=== PATIENT | male | born 1980 | race Caucasian/White ===

== ENCOUNTER 2017-09-27 09:44 | Emergency (ER) | payer OTHER ==
[2017-09-27] MEDS ORDERED: ORPHENADRINE 30 MG/ML 2 ML VIAL IVP STA (10:03)
[2017-09-27] MEDS ORDERED: DIAZEPAM 5 MG TAB PO STA (10:03)
--- NOTE | 2017-09-27 10:09 | ED ---
General Adult HPI - General Chief complaint: Fall Stated complaint: Fall Time Seen by Provider: 09/27/17 09:48 Source: patient, RN notes reviewed Mode of arrival: EMS Limitations: no limitations - History of Present Illness Initial comments: Patient 37-year-old male presenting to the emergency room today by EMS with a chief complaint of increased lower back pain. He does admit that he was standing outside leaning up against the wall when he slipped on some ice fell down onto his buttock. He states he's had increased pain to his lower back. Since radiating throughout. Denies any lumbar radiculopathy. Denies any saddle anesthesia. Denies any gallbladder incontinence. Denies any head injury or loss consciousness. Patient does admit that he was given 6 mg of morphine by EMS which did help with some of his pain but is been having increased pain once again. States worse with any movements. Patient denies any recent fever, chills, shortness of breath, chest pain, abdominal pain, nausea or vomiting, headaches or visual changes, or any other complaints. - Related Data Home Medications Medication Instructions Recorded Confirmed Citalopram Hydrobromide [CeleXA] 40 mg PO HS 04/19/16 09/27/17 Ibuprofen [Motrin Ib] 200 - 400 mg PO Q6H PRN 09/27/17 09/27/17 Previous Rx's Medication Instructions Recorded Baclofen 10 mg PO TID #20 tab 09/27/17 Hydrocodone/Acetaminophen [[place] 1 each PO Q6HR PRN #20 tab 09/27/17 5-325] Naproxen [Naprosyn] 500 mg PO BID #20 tablet 09/27/17 Allergies Allergy/AdvReac Type Severity Reaction Status Date / Time codeine AdvReac Nausea Verified 09/27/17 09:54 [From Tylenol-Codeine #3] ibuprofen [From Motrin] AdvReac Nausea & Verified 09/27/17 10:12 Vomiting & Diarrhea Review of Systems ROS Statement: Those systems with pertinent positive or pertinent negative responses have been documented in the HPI. ROS Other: All systems not noted in ROS Statement are negative. Past Medical History Past Medical History: Asthma History of Any Multi-Drug Resistant Organisms: None Reported Additional Past Surgical History / Comment(s): vasectomy. Past Psychological History: No Psychological Hx Reported Smoking Status: Current every day smoker Past Alcohol Use History: Occasional Past Drug Use History: Marijuana General Exam - General Exam Comments Initial Comments: General: The patient is awake and alert, in no distress, and does not appear acutely ill. Eye: Pupils are equal, round and reactive to light, extra-ocular movements are intact. No nystagmus. There is normal conjunctiva bilaterally. No signs of icterus. Ears, nose, mouth and throat: There are moist mucous membranes and no oral lesions. Neck: The neck is supple, there is no tenderness or JVD. Cardiovascular: There is a regular rate and rhythm. No murmur, rub or gallop is appreciated. Respiratory: Lungs are clear to auscultation, respirations are non-labored, breath sounds are equal. No wheezes, stridor, rales, or rhonchi. Musculoskeletal: Normal ROM. Patient has no step-off deformity. Diffuse tenderness throughout the lumbar spine on palpation and paravertebrally to left right. Strength 5/5. Sensation intact. Pulses equal bilaterally 2+. Neurological: A&O x 3. CN II-XII intact, There are no obvious motor or sensory deficits. Coordination appears grossly intact. Speech is normal. Skin: Skin is warm and dry and no rashes or lesions are noted. Psychiatric: Cooperative, appropriate mood & affect, normal judgment. Limitations: no limitations Course Vital Signs 09/27/17 09:46 Temperature 98.7 F Pulse Rate 64 Respiratory 18 Rate Blood Pressure 145/76 O2 Sat by Pulse 96 Oximetry Medical Decision Making - Medical Decision Making Patient's CT of the lumbar spine has been reviewed shows 1. Compression deformity of L1 vertebral body height loss approximately 50% with no retropulsion. 2. No gross evidence of disc herniation or spinal canal stenosis , however these findings are better evaluated with MRI as read by radiologist Dr. Rios. Case discussed with attending physician Dr. Simon. Patient will be given a prescription for pain medication of [place], naproxen which patient states she's had before with normal reaction, most relaxer. Advised following up with the orthopedic doctor over the next 2 days. Advised no bending or heavy lifting. Patient will be given a prescription for TLSO trace. Disposition Clinical Impression: Vertebral compression fracture Disposition: HOME SELF-CARE Condition: Good Instructions: Vertebral Compression Fracture (ED) Additional Instructions: Please use medication as discussed. Please follow-up with orthopedic doctor over the next 2 days. Please use back brace when up and moving. No bending or lifting. Please return to emergency room if the symptoms increase or worsen or for any other concerns. Prescriptions: Baclofen 10 mg PO TID #20 tab Hydrocodone/Acetaminophen [[place] 5-325] 1 each PO Q6HR PRN #20 tab PRN Reason: Pain Naproxen [Naprosyn] 500 mg PO BID #20 tablet Is patient prescribed a controlled substance at discharge?: Yes If prescribed controlled substance>3 days was MAPS reviewed?: Yes When asked, does pt state using other controlled substances?: No Referrals: Declan Gutierrez MD [Primary Care Provider] - 1-2 days Time of Disposition: 11:59
--- NOTE | 2017-09-27 10:29 | XR ---
EXAMINATION TYPE: XR lumbar spine 2 or 3V DATE OF EXAM: 09/27/2017 CLINICAL HISTORY: Low back pain after fall today. TECHNIQUE: Frontal and lateral images of the lumbar spine are obtained. COMPARISON: None FINDINGS: There are 5 lumbar type vertebral bodies identified. There is a mild levoscoliosis of the lumbar spine. The lumbar spine shows satisfactory alignment. There is compression deformity of the L1 vertebral body without retropulsion. Vertebral body height loss is approximately 50% anteriorly. The re is central depression of the superior endplate of L3, likely from degenerative disc disease rather than compression deformity is vertebral body height loss of the anterior superior endplate is mainta ined. Multilevel mild degenerative changes are seen as small anterior osteophytes and facet arthropat hy from L3 through S1. Pedicles, transverse processes and visualized ribs appear intact. IMPRESSION: 1. Compression deformity of approximately 50% of the L1 vertebral body without retropulsion. Given th e recent fall this could be acute, however without priors for comparison this remains age indetermina nt. Correlate with point tenderness. Additionally MRI could be performed to evaluate for bone marrow edema if kyphoplasty is considered. 2. Mild multilevel degenerative changes of the lumbar spine and mild levoscoliotic curvature.
[2017-09-27] MEDS ORDERED: MORPHINE SULFATE 4MG/4ML SYRG IVP STA (10:36)
[2017-09-27] MEDS ORDERED: KETOROLAC 30 MG/ML 1 ML VIAL IVP STA (10:36)
--- NOTE | 2017-09-27 11:13 | CT ---
EXAMINATION TYPE: CT lumbar spine wo con DATE OF EXAM: 09/27/2017 11:02 AM COMPARISON: Lumbar spine plain films of the same date. HISTORY: Patient complains of low back pain post fall from standing to sitting position. CT DLP: 1796 mGycm Automated exposure control for dose reduction was used. Unenhanced CT of the lumbar spine was performed. Bone and soft tissue window settings are submitted as well as coronal and sagittal reconstructions. Other findings: Again there is a compression deformity of the L1 vertebral body with vertebral body h eight loss of approximately 50% without retropulsion. The fracture line does extend into the vertebra l body from the cranial aspect of the caudal aspect however this does not extend into the posterior c olumn. Remainder the vertebral body heights are maintained. Evaluation of the spinal canal is limited on CT. Alignment of the vertebral bodies are maintained. There is partial visualization of a probable displaced 3.3 cm exophytic right renal cyst. L1-L2: Normal disc space height. No disc herniation protrusion or central stenosis. No facet joint arthropathy. No evidence for foraminal encroachment. L2-L3: Normal disc space height. No disc herniation protrusion or central stenosis. No facet joint arthropathy. No evidence for foraminal encroachment. L3-L4: There is a broad-based disc bulge and facet arthropathy without significant neural foraminal s tenosis or spinal canal stenosis. L4-L5: There is a broad-based disc bulge and facet arthropathy resulting in minimal bilateral neural foraminal narrowing. No significant spinal canal stenosis. L5-S1: Normal disc space height. No disc herniation protrusion or central stenosis. No facet joint arthropathy. No evidence for foraminal encroachment. IMPRESSION: 1. Redemonstration of findings seen on the plain films of the same date. Again there is compression d eformity of the L1 vertebral body with height loss of approximately 50% and no retropulsion. Estimate d on the prior examination and recent fall this could be acute however without priors for comparison it is age indeterminate. MRI could be performed to evaluate for bone marrow edema if kyphoplasty is c onsidered. 2. No gross evidence of disc herniation or spinal canal stenosis, however these findings are better e valuated with MRI.
[2017-09-27 12:10] VITALS: BP 115/55; PULSE 51; RESP 16; TEMP 98.1
== END 2017-09-27 12:22 | disposition home or self-care (01) ==
LOC: EC 09:44
DX: S32.010A Wedge compression fracture of first lumbar vertebra, initial encounter for closed fracture (principal); F17.200 Nicotine dependence, unspecified, uncomplicated; Z79.899 Other long term (current) drug therapy; Z88.5 Allergy status to narcotic agent; Z88.6 Allergy status to analgesic agent; W00.0XXA Fall on same level due to ice and snow, initial encounter; Y93.89 Activity, other specified; Y92.008 Other place in unspecified non-institutional (private) residence as the place of occurrence of the external cause
CPT/HCPCS: 72100; 72131; 99284; 96374; 96375 ×2; J2360; J1885; J2270

== ENCOUNTER 2017-09-29 12:16 | Emergency (ER) | payer OTHER ==
[2017-09-29 12:30] VITALS: TEMP 98.2
[2017-09-29] MEDS ORDERED: KETOROLAC 30 MG/ML 1 ML VIAL IVP STA (13:14)
[2017-09-29] MEDS ORDERED: ONDANSETRON 4 MG/2 ML VIAL IVP STA (13:14)
[2017-09-29] MEDS ORDERED: MORPHINE SULFATE 4MG/4ML SYRG IVP STA ×2 (13:14→15:21)
--- NOTE | 2017-09-29 14:01 | XR ---
Lumbar spine HISTORY: Low back pain, trauma last Tuesday 3 views of the lumbar spine correlated to prior plain film and CT exam dated 09/27/2017 There is no significant change. IMPRESSION: Stable exam. Comminuted anterior wedge compression fracture at L1 again noted.
--- NOTE | 2017-09-29 15:05 | ED ---
General Adult HPI - General Chief complaint: Back Pain/Injury Stated complaint: back pain-revisit Time Seen by Provider: 09/29/17 12:54 Source: patient, family, RN notes reviewed Mode of arrival: wheelchair Limitations: no limitations - History of Present Illness Initial comments: 37-year-old male presents to the emergency department for a chief complaint of low back pain. Patient states he was here 2 days ago and was diagnosed with a compression wedge fracture of L1. He states 2 days ago he was leaning against his porch when he slipped and fell on his buttock. Patient states he has been taking [place] and naproxen which has been helping somewhat. However the pain is caused him to be unable to sleep. Patient states he contacted his doctor about this who said he needed to come to the emergency department to be admitted for pain management and monitoring since he can't be seen by his primary care doctor until Tuesday. Patient states he is supposed to be fitted for a brace but states he was going to go today but the pain was too severe for him to go. Patient denies any bladder or bowel changes. Patient has full sensation of both legs and denies any numbness or tingling in the lower extremities. Patient states his pain was getting better yesterday but it now feels as if it did when he had the fracture. Patient denies any other complaints at this time. Patient denies shortness of breath, chest pain, abdominal pain, headache , nausea or vomiting. No neck pain. No injuries to the back since he was last seen here. - Related Data Home Medications Medication Instructions Recorded Confirmed Citalopram Hydrobromide [CeleXA] 40 mg PO HS 04/19/16 09/29/17 Hydrocodone/Acetaminophen [[place] 1 tab PO Q6HR PRN 09/29/17 09/29/17 5-325] Previous Rx's Medication Instructions Recorded Baclofen 10 mg PO TID #20 tab 09/27/17 Naproxen [Naprosyn] 500 mg PO BID #20 tablet 09/27/17 HYDROcodone/APAP 5-325MG [[place] 1 tab PO Q6HR PRN #12 tab 09/29/17 5-325] Allergies Allergy/AdvReac Type Severity Reaction Status Date / Time codeine AdvReac Nausea Verified 09/29/17 13:05 [From Tylenol-Codeine #3] ibuprofen [From Motrin] AdvReac Nausea & Verified 09/29/17 13:05 Vomiting & Diarrhea Review of Systems ROS Statement: Those systems with pertinent positive or pertinent negative responses have been documented in the HPI. ROS Other: All systems not noted in ROS Statement are negative. Past Medical History Past Medical History: Asthma Additional Past Medical History / Comment(s): compression fracture to back History of Any Multi-Drug Resistant Organisms: None Reported Additional Past Surgical History / Comment(s): vasectomy. Past Psychological History: No Psychological Hx Reported Smoking Status: Current every day smoker Past Alcohol Use History: Occasional Past Drug Use History: Marijuana General Exam Limitations: no limitations General appearance: alert, in no apparent distress Neck exam: Present: normal inspection. Absent: tenderness, meningismus, lymphadenopathy Respiratory exam: Present: normal lung sounds bilaterally. Absent: respiratory distress, wheezes, rales, rhonchi, stridor Cardiovascular Exam: Present: regular rate, normal rhythm, normal heart sounds. Absent: systolic murmur, diastolic murmur, rubs, gallop, clicks Extremities exam: Present: other (Pedal pulse 2+ in lower extremities bilaterally. Capillary refill less than 2 seconds.) Back exam: Present: tenderness (Tenderness of the lumbar spine). Absent: full ROM (Limited range of motion of the lumbar spine but is able to stand.), CVA tenderness (R), CVA tenderness (L) Neurological exam: Present: alert, oriented X3, CN II-XII intact, other (GCS 15) Course Vital Signs 09/29/17 12:25 Temperature 98.2 F Pulse Rate 83 Respiratory 20 Rate Blood Pressure 143/80 O2 Sat by Pulse 95 Oximetry Medical Decision Making - Medical Decision Making 37-year-old male presents to the emergency department for a chief complaint of lumbar back pain. Patient was seen 2 days ago and was diagnosed with a wedge compression fracture. Patient was sent home with [place] and naproxen. He was to get a back brace but cannot stand for the duration due to the pain apparently. Patient states the [place] has been helping but he is still unable to sleep due to the pain. He contacted his doctor who wanted him to be admitted for pain management and monitoring. No new injuries to the back. Lumbar x-ray was repeated. X-ray shows a stable exam with a comminuted anterior wedge compression fracture at L1 noted again. Patient felt much better after 4 mg of morphine and a shot of Toradol was given. Patient was seen standing and walking and is feeling better. Patient was offered admission but refused admission and stated he would rather do pain management at home and get the brace fitted today. Patient was told to return to the emergency department if symptoms worsen. He is to follow up with his primary care doctor at his scheduled appointment in 4 days or sooner if needed. Disposition Clinical Impression: Compression fracture Disposition: HOME SELF-CARE Condition: Good Instructions: Acute Low Back Pain (ED) Additional Instructions: Please return to the emergency department if you have any worsening symptoms. Otherwise follow-up with primary care in 1-2 days. Please follow-up with spine surgeon as well. Phone number is included in your discharge paperwork. Prescriptions: HYDROcodone/APAP 5-325MG [[place] 5-325] 1 tab PO Q6HR PRN #12 tab PRN Reason: Pain Is patient prescribed a controlled substance at d/c from ED?: Yes Referrals: Declan Gutierrez MD [Primary Care Provider] - 1-2 days Apollo Oliva DO [Doctor of Osteopathic Medicine] - 1-2 days Time of Disposition: 15:24
[2017-09-29 16:16] VITALS: BP 145/79; PULSE 84; RESP 18
== END 2017-09-29 16:16 | disposition home or self-care (01) ==
LOC: EC 12:16
DX: S32.010G Wedge compression fracture of first lumbar vertebra, subsequent encounter for fracture with delayed healing (principal); Z79.899 Other long term (current) drug therapy; Z88.5 Allergy status to narcotic agent; Z88.6 Allergy status to analgesic agent; W01.0XXD Fall on same level from slipping, tripping and stumbling without subsequent striking against object, subsequent encounter
CPT/HCPCS: 72100; 99283; 96374; 96375 ×2; 96376; J2405; J1885; J2270

== ENCOUNTER 2018-09-07 13:19 | Emergency (ER) | payer OTHER ==
[2018-09-07] MEDS ORDERED: predniSONE 50 MG TAB PO STA (14:14)
[2018-09-07] MEDS ORDERED: KETOROLAC 60 MG/2 ML VIAL IM STA (14:14)
--- NOTE | 2018-09-07 15:02 | XR ---
EXAM TYPE: LUMBAR SPINE X RAY SERIES COMPARISON: NONE HISTORY: Pain TECHNIQUE: 3 views are submitted. FINDINGS: There is a stable appearing severe anterior wedge deformity of L1. Severe degenerative disc disease T 12-L1 and mild to moderate changes at L1-L2. Slight curvature the spine. IMPRESSION: 1. Chronic fracture L1 with adjacent degenerative disc disease.
--- NOTE | 2018-09-07 15:09 | ED ---
General Adult HPI - General Chief complaint: Back Pain/Injury Stated complaint: Back pain Time Seen by Provider: 09/07/18 14:01 Source: patient, RN notes reviewed, old records reviewed Mode of arrival: ambulatory Limitations: no limitations - History of Present Illness Initial comments: 38-year-old male patient past medical history of compression fracture of L1 presents to ED with lumbar back pain rating down to his right leg. Patient reports that approximately 4 days ago he had multiple sneezes which causes him pain has back. Patient reports that the next 2 days he had to assist picking up his father who weighs over 300 pounds causing more restrained within his lumbar back. Patient reports pain in his lumbar back which radiates down his right l eg. Patient denies any loss of bowel or bladder control, saddle anesthesia, lower extremity weakness, paresthesias. Patient denies other complaints. Systemic: Pt denies fatigue, myalgia, fever/chills, rash. Pt denies weakness, night sweats, weight loss. Neuro: Pt denies headache, visual disturbances, syncope or pre-syncope. HEENT: Pt denies ocular discharge or irritation, otalgia, rhinorrhea, pharyngitis or notable lymphadenopathy. Cardiopulmonary: Pt denies chest pain, SOB, heart palpitations, dyspnea on exertion. Abdominal/GI: Pt denies abdominal pain, n/v/d. : Pt denies dysuria, burning w/ urination, frequency/urgency. Denies new onset urinary or bowel incontinence. MSK: Pt denies myalgia, loss of strength or function in extremities. Neuro: Pt denies new onset weakness, paresthesias. - Related Data Home Medications Medication Instructions Recorded Confirmed Citalopram Hydrobromide [CeleXA] 40 mg PO HS 04/19/16 09/07/18 Previous Rx's Medication Instructions Recorded Baclofen 10 mg PO TID #20 tab 09/27/17 Naproxen [Naprosyn] 500 mg PO BID #20 tablet 09/27/17 predniSONE 50 mg PO DAILY 4 Days #4 tab 09/07/18 Allergies Allergy/AdvReac Type Severity Reaction Status Date / Time codeine AdvReac Nausea Verified 09/07/18 13:43 [From Tylenol-Codeine #3] ibuprofen [From Motrin] AdvReac Nausea & Verified 09/07/18 13:43 Vomiting & Diarrhea Review of Systems ROS Statement: Those systems with pertinent positive or pertinent negative responses have been documented in the HPI. ROS Other: All systems not noted in ROS Statement are negative. Past Medical History Past Medical History: Asthma Additional Past Medical History / Comment(s): compression fracture to back History of Any Multi-Drug Resistant Organisms: None Reported Additional Past Surgical History / Comment(s): vasectomy. Past Psychological History: No Psychological Hx Reported Smoking Status: Current every day smoker Past Alcohol Use History: Occasional Past Drug Use History: Marijuana General Exam - General Exam Comments Initial Comments: Constitutional: NAD, AOX3, Pt has pleasant affect. HEENT: NC/AT, trachea midline, neck supple, no lymphadenopathy. Posterior pharynx non erythematous, without exudates. External ears appear normal, without discharge. Mucous membranes moist. Eyes PERRLA, EOM intact. There is no scleral icterus. No pallor noted. Cardiopulmonary: RRR, no murmurs, rubs or gallops, no JVD noted. Lungs CTAB in anterior and posterior batres. No peripheral edema. Abdominal exam: Abdomen soft and non-distended. Abdomen non-tender to palpation in all 4 quadrants. Bowel sounds active in LLQ. No hepatosplenomegaly. No ecchymosis Neuro: CN II-XII grossly intact. No nuchal rigidity. MSK: No cervical thoracic spinal tenderness. Lumbar spine midline and right para mildly tender to palpation. Right straight leg raise positive. No posterior calf tenderness bilaterally, homans sign negative bilaterally. Posterior tibialis and radial pulse +2 bilaterally. 2/4 reflexes in patellar and achillies. Straight leg raise positive right. Sensation intact in upper and lower extremities. Full active ROM in upper and lower extremities, 5/5 stregnth. Limitations: no limitations Course Vital Signs 09/07/18 13:41 Temperature 98.1 F Pulse Rate 73 Respiratory 24 Rate Blood Pressure 119/68 O2 Sat by Pulse 99 Oximetry Medical Decision Making - Medical Decision Making 38-year-old male patient past medical history of compression fracture of L1 presents to ED with lumbar back pain rating down to his right leg. Patient reports that approximately 4 days ago he had multiple sneezes which causes him pain has back. Patient reports that the next 2 days he had to assist picking up his father who weighs over 300 pounds causing more restrained within his lumbar back. Patient reports pain in his lumbar back which radiates down his right leg. Patient denies any loss of bowel or bladder control, saddle anesthesia, l ower extremity weakness, paresthesias. Patient denies other complaints. Patient vital signs stable, afebrile. Physical exam displayed: No cervical thoracic spinal tenderness. Lumbar spine midline and right para mildly tender to palpation. Right straight leg raise positive. No posterior calf tenderness bilaterally, homans sign negative bilaterally. Posterior tibialis and radial pulse +2 bilaterally. 2/4 reflexes in patellar and achillies. Straight leg raise positive right. Sensation intact in upper and lower extremities. Full active ROM in upper and lower extremities, 5/5 stregnth. Patient declined rectal exam. Plain film of lumbar spine displayed chronic fracture L1 with adjacent degenerative disc disease. Patient previously aware of these findings. Pt pain well controlled in ED. Pt ambulatory without difficulty. Patient will follow-up with Dr. Oliva per patient request. Pt will also follow up with PCP. Pt yahir lreturn to ER if condition worsens in anyway. Pt not driving home. Case discussed with Dr. Blanca. Disposition Clinical Impression: Lumbar back sprain Disposition: HOME SELF-CARE Condition: Stable Instructions (If sedation given, give patient instructions): Acute Low Back Pain (ED), Chronic Back Pain (ED) Additional Instructions: Patient to adhere to previously discussed treatment plan and will take medication(s) as directed. Patient to follow up with PCP in 1-2 days. Patient to return to ED if symptoms do not improve. Please follow-up with orthopedic consult and primary care physician one to 2 days. Return to ER if condition worsens in any way. Prescriptions: predniSONE 50 mg PO DAILY 4 Days #4 tab Is patient prescribed a controlled substance at d/c from ED?: No Referrals: None,Stated [Primary Care Provider] - 1-2 days Apollo Oliva, [Doctor of Osteopathic Medicine] - 1-2 days
[2018-09-07] MEDS ORDERED: HYDROcodone/APAP 7.5-325MG 1 EACH TAB PO ONE (15:23)
[2018-09-07] MEDS ORDERED: ACET/COD 300 MG/30 MG STARTER PACK 6 TAB BTL PO STA (16:17)
[2018-09-07 17:20] VITALS: BP 118/75; PULSE 72; RESP 20; TEMP 97.2
== END 2018-09-07 16:40 | disposition home or self-care (01) ==
LOC: EC 13:19
DX: S33.5XXA Sprain of ligaments of lumbar spine, initial encounter (principal); F17.200 Nicotine dependence, unspecified, uncomplicated; Z79.899 Other long term (current) drug therapy; Z88.5 Allergy status to narcotic agent; Z88.6 Allergy status to analgesic agent; X50.0XXA Overexertion from strenuous movement or load, initial encounter
CPT/HCPCS: 72100; 99284; 96372; J1885; J7512

== ENCOUNTER 2019-04-20 11:34 | Emergency (ER) | payer OTHER ==
[2019-04-20] MEDS ORDERED: hydrALAZINE HCL 20 MG/ML 1 ML VIAL IVP STA (12:20)
[2019-04-20] MEDS ORDERED: ACET/COD 300 MG/30 MG STARTER PACK 6 TAB BTL PO STA (12:31)
--- NOTE | 2019-04-20 12:50 | XR ---
EXAM TYPE: LUMBAR SPINE X RAY SERIES COMPARISON: 09/07/2018 HISTORY: Low back pain TECHNIQUE: 4 views are submitted. FINDINGS: There is a stable appearing severe anterior wedge deformity of L1. Severe degenerative disc disease T 12-L1 and mild to moderate changes at L1-L2. Slight curvature the spine. There may be a stable minima l superior endplate deformity of L3. IMPRESSION: 1. Chronic compression fracture L1 with adjacent degenerative disc disease stable. Correlate with MRI as clinically warranted.
--- NOTE | 2019-04-20 13:19 | ED ---
Neck Injury/Pain HPI - General Chief Complaint: Neck Pain/Injury Stated Complaint: Back pain Time Seen by Provider: 04/20/19 11:55 Mode of arrival: ambulatory - History of Present Illness Initial Comments: 38-year-old male with history of previous L1-L2 fracture and herniation of lumbar spine discs presented to the emergency Department for chief complaint of low back pain after coughing. Patient states that he expresses low back pain after coughing in the area where he had previous injury approximately 1-2 years ago. Sharp pain increases with walking/twisting/bending turning. Decreases when sitting still. Patient states 2 years ago he fractured L1 after a fall. He states that one year later he fractured L2 after sneezing and had a disc herniation. Patient states he coughed hard yesterday had similar sensation as the last year. Patient states his midline tenderness. He denies any loss of bowel bladder control urinary retention or any limitations in range of motion or ambulating new from his baseline, patient states he has a tendon deficit from childhood in the right leg. Patient denies any loss sensation or radiation of the pain down the leg. Patient denies any erectile dysfunction. patient denies any falls or trauma or IV drug use history of cancer, or history of recent fever. Denies rashes. Remaining ros (-). - Related Data Home Medications Medication Instructions Recorded Confirmed Citalopram Hydrobromide [CeleXA] 40 mg PO HS 04/19/16 09/07/18 Previous Rx's Medication Instructions Recorded Baclofen 10 mg PO TID #20 tab 09/27/17 Naproxen [Naprosyn] 500 mg PO BID #20 tablet 09/27/17 predniSONE 50 mg PO DAILY 4 Days #4 tab 09/07/18 Allergies Allergy/AdvReac Type Severity Reaction Status Date / Time codeine AdvReac Nausea Verified 04/20/19 11:43 [From Tylenol-Codeine #3] ibuprofen [From Motrin] AdvReac Nausea & Verified 04/20/19 11:43 Vomiting & Diarrhea Review of Systems ROS Statement: Those systems with pertinent positive or pertinent negative responses have been documented in the HPI. ROS Other: All systems not noted in ROS Statement are negative. Past Medical History Past Medical History: Asthma Additional Past Medical History / Comment(s): compression fracture to back History of Any Multi-Drug Resistant Organisms: None Reported Additional Past Surgical History / Comment(s): vasectomy. Past Psychological History: No Psychological Hx Reported Smoking Status: Former smoker Past Alcohol Use History: Occasional Past Drug Use History: Marijuana General Exam - General Exam Comments Initial Comments: General: The patient is awake and alert, in no distress, and does not appear acutely ill. Eye: Pupils are equal, round and reactive to light, extra-ocular movements are intact. No nystagmus. There is normal conjunctiva bilaterally. No signs of icterus. Cardiovascular: There is a regular rate and rhythm. No murmur, rub or gallop is appreciated. Respiratory: Lungs are clear to auscultation, respirations are non-labored, breath sounds are equal. No wheezes, stridor, rales, or rhonchi. Musculoskeletal: Normal inspection of the cervicothoracic and lumbar spine. Patient has mild midline and mostly paravertebral tenderness of the mid to upper lumbar spine. No lesions or rashes appreciated. Full strength lower extremity bilaterally. Normal patellar reflexes. Advised that difficulty heel and toe walk. Sensation intact lower extremity including saddle region. Negative straight leg raise. DP pulses equal bilaterally 2+. Neurological: A&O x 3. CN II-XII intact grossly, There are no obvious motor or sensory deficits. Coordination appears grossly intact. Speech is normal. Skin: Skin is warm and dry and no rashes or lesions are noted. Psychiatric: Cooperative, appropriate mood & affect, normal judgment. Course Vital Signs 04/20/19 04/20/19 11:40 13:20 Temperature 97.9 F 97.1 F L Pulse Rate 63 97 Respiratory 20 19 Rate Blood Pressure 164/113 109/87 O2 Sat by Pulse 96 97 Oximetry Medical Decision Making - Medical Decision Making 38-year-old male presenting for low back pain. Acute on chronic. Exacerbated by cough. Patient has had this happen in the past after a sneeze. Patient has no history concerning for cauda equina. No physical examination findings supportive of significant spinal cord compression. Patient appears well is ambulatory. Patient provided medications percent on a control patient is instructed to follow up outpatient for MRI. No emergent imaging studies warranted at this time patient is agreeable. Return parameters were discussed at length patient verbalized understanding was discharged appearing well d iscussed the case by attending provider Disposition Clinical Impression: Low back pain Disposition: HOME SELF-CARE Condition: Good Instructions (If sedation given, give patient instructions): Back Pain (ED) Additional Instructions: Please use medication as discussed. Please follow-up with family doctor in the next 2 days. Please return to emergency room if the symptoms increase or worsen or for any other concerns. Is patient prescribed a controlled substance at d/c from ED?: No Referrals: None,Stated [Primary Care Provider] - 1-2 days [facility] [NON-STAFF] - 1-2 days Time of Disposition: 13:18
[2019-04-20 13:28] VITALS: BP 109/87; PULSE 97; RESP 19; TEMP 97.1
== END 2019-04-20 13:20 | disposition home or self-care (01) ==
LOC: EC 11:34
DX: M54.5 Low back pain (principal); R06.7 Sneezing; Z88.5 Allergy status to narcotic agent; Z88.6 Allergy status to analgesic agent; Z87.891 Personal history of nicotine dependence; Z87.81 Personal history of (healed) traumatic fracture
CPT/HCPCS: 72100; 99283

== ENCOUNTER 2019-06-06 21:06 | Emergency (ER) | payer OTHER ==
--- NOTE | 2019-06-06 21:41 | ED ---
General Adult HPI - General Chief complaint: Chest Pain Stated complaint: Chest pain Time Seen by Provider: 06/06/19 21:39 Source: patient, family Mode of arrival: ambulatory Limitations: no limitations - History of Present Illness Initial comments: Patient presents the ED with his for evaluation. Patient states that he has had bilateral calf pain, chest pain and dyspnea since yesterday morning. Patient's states that she attempted to get the patient to come to the ED yesterday, but he refused. She states that she is concerned that the patient may have "a blood clot", as blood clots run in the patient's family. Patient denies having any chest pain currently. Patient denies trauma or injury, fever or chills, headache, focal neuro deficit, neck/arm/jaw/back pain, pleuritic pain, cough or cold symptoms, palpitations, dizziness, naus ea/vomiting/diaphoresis, abdominal pain, dysuria or urinary symptoms, decreased urine output, or any other symptoms or complaints. - Related Data Home Medications Medication Instructions Recorded Confirmed Citalopram Hydrobromide [CeleXA] 40 mg PO HS 04/19/16 09/07/18 Previous Rx's Medication Instructions Recorded Baclofen 10 mg PO TID #20 tab 09/27/17 Naproxen [Naprosyn] 500 mg PO BID #20 tablet 09/27/17 predniSONE 50 mg PO DAILY 4 Days #4 tab 09/07/18 Allergies Allergy/AdvReac Type Severity Reaction Status Date / Time codeine AdvReac Nausea Verified 06/06/19 21:14 [From Tylenol-Codeine #3] ibuprofen [From Motrin] AdvReac Nausea & Verified 06/06/19 21:14 Vomiting & Diarrhea Review of Systems ROS Statement: Those systems with pertinent positive or pertinent negative responses have been documented in the HPI. ROS Other: All systems not noted in ROS Statement are negative. Past Medical History Past Medical History: Asthma Additional Past Medical History / Comment(s): compression fracture to back History of Any Multi-Drug Resistant Organisms: MRSA Date of last positivie culture/infection: 2005 MDRO Source:: generalized Past Surgical History: Orthopedic Surgery Additional Past Surgical History / Comment(s): vasectomy. Past Psychological History: No Psychological Hx Reported Smoking Status: Former smoker Past Alcohol Use History: Occasional Past Drug Use History: Marijuana General Exam Limitations: no limitations General appearance: alert, in no apparent distress Head exam: Present: atraumatic, normocephalic Eye exam: Present: normal appearance, EOMI ENT exam: Present: mucous membranes moist Neck exam: Present: other (Trachea is in midline) Respiratory exam: Present: normal lung sounds bilaterally. Absent: respiratory distress, wheezes, rales, rhonchi Cardiovascular Exam: Present: regular rate, normal rhythm, normal heart sounds, other (Normal radial and dorsalis pedis pulses bilaterally) GI/Abdominal exam: Present: soft, other (Obese abdomen). Absent: tenderness, guarding Extremities exam: Present: full ROM, other (Mild bilateral calf tenderness is noted on exam; numerous varicosities are noted to the patient's bilateral lower legs). Absent: pedal edema Neurological exam: Present: alert, oriented X3. Absent: motor sensory deficit Psychiatric exam: Present: normal affect, normal mood Skin exam: Present: warm, dry, intact, normal color Course Vital Signs 06/06/19 21:10 Temperature 98.5 F Pulse Rate 93 Respiratory 20 Rate Blood Pressure 131/90 O2 Sat by Pulse 97 Oximetry - Reevaluation(s) Reevaluation #1: 06/06/19 22:50 Patient remains alert and breathing comfortably with a normal room air oxygen saturation. Patient denies development of any new symptoms while in the ED. Patient and are aware of the patient's test results, and patient feels comfortable going home with his at this time. EKG Findings - EKG Comments: EKG Findings:: Normal sinus rhythm, no ectopy, ventricular rate of 68 bpm, normal [place] and QRS intervals, normal QT interval, normal axis, no ST or T-wave abnormality Medical Decision Making - Medical Decision Making Patient is breathing comfortably in the ED with a normal room air oxygen saturation. Patient's EKG, chest x-ray, labs and bilateral lower extremity ve nous duplex ultrasounds are all fairly unremarkable. Patient's d-dimer is negative and his lower extremity venous duplex ultrasounds are negative for DVT. Patient reports having constant pain since yesterday, and his troponin is negative. I suspect that the patient's calf pain may be secondary to his varicose veins, and he was instructed to try compression stockings and try to lose weight. I do not think that the patient's symptoms are from a cardiac etiology or emergent medical condition. Will discharge patient home with his at this time. Patient was clearly explained return and follow-up instructions. Patient was instructed to return to the ED should he develop new or worsening pain or swelling, increased shortness of breath, a fever, vomiting, feeling dizzy or faint, or new or worsening symptoms. Patient was also instructed to follow up closely with a primary care provider. Patient feels comfortable with this plan. - Lab Data Result diagrams: 06/06/19 21:40 06/06/19 21:40 Lab Results 06/06/19 06/06/19 06/06/19 Range/Units 21:40 21:40 21:40 WBC 4.7 (3.8-10.6) k/uL RBC 5.24 (4.30-5.90) m/uL Hgb 15.5 (13.0-17.5) gm/dL Hct 45.9 (39.0-53.0) % MCV 87.5 (80.0-100.0) fL MCH 29.7 (25.0-35.0) pg MCHC 33.9 (31.0-37.0) g/dL RDW 13.2 (11.5-15.5) % Plt Count 254 (150-450) k/uL Neutrophils % 62 % Lymphocytes % 20 % Monocytes % 10 % Eosinophils % 2 % Basophils % 3 % Neutrophils # 2.9 (1.3-7.7) k/uL Lymphocytes # 0.9 L (1.0-4.8) k/uL Monocytes # 0.5 (0-1.0) k/uL Eosinophils # 0.1 (0-0.7) k/uL Basophils # 0.1 (0-0.2) k/uL PT 9.8 (9.0-12.0) sec INR 0.9 (<1.2) APTT 24.7 (22.0-30.0) sec D-Dimer 0.46 (<0.60) mg/L FEU Sodium 139 (137-145) mmol/L Potassium 3.9 (3.5-5.1) mmol/L Chloride 106 (98-107) mmol/L Carbon Dioxide 24 (22-30) mmol/L Anion Gap 9 mmol/L BUN 15 (9-20) mg/dL Creatinine 0.81 (0.66-1.25) mg/dL Est GFR (CKD-EPI)AfAm >90 (>60 ml/min/1.73 sqM) Est GFR (CKD-EPI)NonAf >90 (>60 ml/min/1.73 sqM) Glucose 104 H (74-99) mg/dL Calcium 9.0 (8.4-10.2) mg/dL Magnesium 1.9 (1.6-2.3) mg/dL Total Bilirubin 0.5 (0.2-1.3) mg/dL AST 48 (17-59) U/L ALT 66 H (4-49) U/L Alkaline Phosphatase 62 (38-126) U/L Troponin I (0.000-0.034) ng/mL NT-Pro-B Natriuret Pep pg/mL Total Protein 7.1 (6.3-8.2) g/dL Albumin 4.3 (3.5-5.0) g/dL 06/06/19 06/06/19 Range/Units 21:40 21:40 WBC (3.8-10.6) k/uL RBC (4.30-5.90) m/uL Hgb (13.0-17.5) gm/dL Hct (39.0-53.0) % MCV (80.0-100.0) fL MCH (25.0-35.0) pg MCHC (31.0-37.0) g/dL RDW (11.5-15.5) % Plt Count (150-450) k/uL Neutrophils % % Lymphocytes % % Monocytes % % Eosinophils % % Basophils % % Neutrophils # (1.3-7.7) k/uL Lymphocytes # (1.0-4.8) k/uL Monocytes # (0-1.0) k/uL Eosinophils # (0-0.7) k/uL Basophils # (0-0.2) k/uL PT (9.0-12.0) sec INR (<1.2) APTT (22.0-30.0) sec D-Dimer (<0.60) mg/L FEU Sodium (137-145) mmol/L Potassium (3.5-5.1) mmol/L Chloride (98-107) mmol/L Carbon Dioxide (22-30) mmol/L Anion Gap mmol/L BUN (9-20) mg/dL Creatinine (0.66-1.25) mg/dL Est GFR (CKD-EPI)AfAm (>60 ml/min/1.73 sqM) Est GFR (CKD-EPI)NonAf (>60 ml/min/1.73 sqM) Glucose (74-99) mg/dL Calcium (8.4-10.2) mg/dL Magnesium (1.6-2.3) mg/dL Total Bilirubin (0.2-1.3) mg/dL AST (17-59) U/L ALT (4-49) U/L Alkaline Phosphatase (38-126) U/L Troponin I <0.012 (0.000-0.034) ng/mL NT-Pro-B Natriuret Pep 21 pg/mL Total Protein (6.3-8.2) g/dL Albumin (3.5-5.0) g/dL - Radiology Data Radiology results: report reviewed (Bilateral lower extremity venous duplex ultrasounds are negative for evidence of DVT), image reviewed (Chest x-ray is negative) Disposition Clinical Impression: Chest pain, Lower extremity pain, bilateral, Varicose veins of both lower extremities Disposition: HOME SELF-CARE Condition: Stable Instructions (If sedation given, give patient instructions): Chest Pain (ED), Leg Pain (ED) Additional Instructions: Return to the ED immediately should you develop new or worsening pain or swelling, increased shortness of breath, a fever, vomiting, feeling dizzy or faint, or new or worsening symptoms. Follow up closely with a primary care provider. Is patient prescribed a controlled substance at d/c from ED?: No Referrals: None,Stated [Primary Care Provider] - 1-2 days Julieta Winchester MD [REFERRING] - 1-2 days Time of Disposition: 22:54
[2019-06-06 22:04] LABS: Basophils # (A) 0.1 k/uL (0-0.2); Basophils % (A) 3 %; Eosinophils # (A) 0.1 k/uL (0-0.7); Eosinophils % (A) 2 %; HCT 45.9 % (39.0-53.0); HGB 15.5 gm/dL (13.0-17.5); Lymphocytes # (A) 0.9 k/uL (1.0-4.8); Lymphocytes % (A) 20 %; MCH 29.7 pg (25.0-35.0); MCHC 33.9 g/dL (31.0-37.0); MCV 87.5 fL (80.0-100.0); Mean Platelet Volume 7.8; Monocytes # (A) 0.5 k/uL (0-1.0); Monocytes % (A) 10 %; Neutrophils # (A) 2.9 k/uL (1.3-7.7); Neutrophils % (A) 62 %; Platelet Count 254 k/uL (150-450); RBC 5.24 m/uL (4.30-5.90); RDW 13.2 % (11.5-15.5); WBC 4.7 k/uL (3.8-10.6)
--- NOTE | 2019-06-06 22:05 | XR ---
EXAMINATION TYPE: XR chest 2V DATE OF EXAM: 06/06/2019 COMPARISON: NONE HISTORY: Chest pain TECHNIQUE: 2 views FINDINGS: Heart and mediastinum are normal. Lungs are clear. Diaphragm is normal. Bony thorax appears normal. IMPRESSION: Normal chest
[2019-06-06 22:17] LABS: ALT 66 U/L (4-49); AST 48 U/L (17-59); African American GFR (CKD) >90 (>60 ml/min/1.73 sqM); Albumin 4.3 g/dL (3.5-5.0); Alkaline Phosphatase 62 U/L (38-126); Anion Gap 9 mmol/L; Blood Urea Nitrogen 15 mg/dL (9-20); Carbon Dioxide 24 mmol/L (22-30); Chloride 106 mmol/L (98-107); Glucose 104 mg/dL (74-99); Magnesium 1.9 mg/dL (1.6-2.3); Non-African American GFR(CKD) >90 (>60 ml/min/1.73 sqM); Potassium 3.9 mmol/L (3.5-5.1); Sodium 139 mmol/L (137-145); Total Bilirubin 0.5 mg/dL (0.2-1.3); Total Protein 7.1 g/dL (6.3-8.2)
[2019-06-06 22:18] LABS: D-Dimer 0.46 mg/L FEU (<0.60); INR 0.9 (<1.2); Partial Thromboplastin Time 24.7 sec (22.0-30.0); Prothrombin Time 9.8 sec (9.0-12.0)
--- NOTE | 2019-06-06 22:40 | US ---
EXAMINATION TYPE: US venous doppler duplex LE DATE OF EXAM: 06/06/2019 10:24 PM COMPARISON: NONE CLINICAL HISTORY: bilateral calf pain. Bilateral calf pain x 1 week. No hx of DVT. Patient does not t benita blood thinners. SIDE PERFORMED: Bilateral TECHNIQUE: The lower extremity deep venous system is examined utilizing real time linear array sonog luz elena with graded compression, doppler sonography and color-flow sonography. VESSELS IMAGED: Common Femoral Vein Deep Femoral Vein Greater Saphenous Vein * Femoral Vein Popliteal Vein Small Saphenous Vein * Proximal Calf Veins (* superficial vessels) Limited exam due to large patient body habitus. Right Leg: EIV not visualized. No evidence of DVT at this time in veins imaged from prox calf veins to CFV/GSV. Left Leg: EIV not visualized. No evidence of DVT at this time in veins imaged from prox calf veins t o CFV/GSV. IMPRESSION: No evidence of deep venous thrombosis in both legs.
[2019-06-06 23:15] VITALS: BP 140/89; PULSE 92; RESP 18; TEMP 98.2
== END 2019-06-06 23:13 | disposition home or self-care (01) ==
LOC: EC 21:06
DX: I83.813 Varicose veins of bilateral lower extremities with pain (principal); R07.9 Chest pain, unspecified; Z87.891 Personal history of nicotine dependence; Z88.5 Allergy status to narcotic agent; Z88.6 Allergy status to analgesic agent; Z86.14 Personal history of Methicillin resistant Staphylococcus aureus infection
CPT/HCPCS: 36415; 71046; 80053; 83735; 83880; 84484; 85025; 85379; 85610; 85730; 93005; 93970; 99285

== ENCOUNTER 2020-06-11 18:04 | Emergency (ER) | payer OTHER ==
[2020-06-11 18:14] VITALS: TEMP 98.2
[2020-06-11] MEDS ORDERED: KETOROLAC 15 MG/ML 1 ML VIAL IM STA (19:03)
--- NOTE | 2020-06-11 19:46 | ED ---
Back Pain HPI - General Chief Complaint: Back Pain/Injury Stated Complaint: Back Pain Time Seen by Provider: 06/11/20 18:39 Source: patient Limitations: no limitations - History of Present Illness Initial Comments: Patient is a 40-year-old male presenting to emergency Department with complaints of lower back pain 1 week. Patient states one week ago he slipped and fell forward onto his knees and then backwards onto his back. Patient states ever since then he's been having increase in his low back pain. He does have a history of back pain but states he can usually control it. He has been trying Tylenol at home without improvement. He denies any numbness and tingling into his lower extremities, no radiating pain, no bowel or bladder incontinence. He denies any fever or chills. He denies any recent surgeries to his back. He has no further complaints at this time. - Related Data Home Medications Medication Instructions Recorded Confirmed Citalopram Hydrobromide [CeleXA] 40 mg PO HS 04/19/16 09/07/18 Previous Rx's Medication Instructions Recorded Baclofen 10 mg PO TID #20 tab 09/27/17 Naproxen [Naprosyn] 500 mg PO BID #20 tablet 09/27/17 predniSONE 50 mg PO DAILY 4 Days #4 tab 09/07/18 Allergies Allergy/AdvReac Type Severity Reaction Status Date / Time codeine AdvReac Nausea Verified 06/06/19 21:14 [From Tylenol-Codeine #3] ibuprofen [From Motrin] AdvReac Nausea & Verified 06/06/19 21:14 Vomiting & Diarrhea Review of Systems ROS Statement: Those systems with pertinent positive or pertinent negative responses have been documented in the HPI. ROS Other: All systems not noted in ROS Statement are negative. Past Medical History Past Medical History: Asthma Additional Past Medical History / Comment(s): compression fracture to back History of Any Multi-Drug Resistant Organisms: MRSA Date of last positivie culture/infection: 2005 MDRO Source:: generalized Past Surgical History: Orthopedic Surgery Additional Past Surgical History / Comment(s): vasectomy. Past Psychological History: No Psychological Hx Reported Smoking Status: Former smoker Past Alcohol Use History: Occasional Past Drug Use History: Marijuana General Exam - General Exam Comments Initial Comments: GENERAL: Patient is well-developed and well-nourished. Patient is nontoxic and in no acute distress, patient was resting complaining the room playing on his phone upon arrival, he is able sit forward without difficulty. HEAD: Atraumatic, normocephalic. EYES: Pupils equal round and reactive to light, extraocular movements intact, sclera anicteric, conjunctiva are normal. Eyelids were unremarkable. ENT: TMs normal, nares patent, oropharynx clear without exudates. Moist mucous membranes. NECK: Normal range of motion, supple without lymphadenopathy or JVD. LUNGS: Unlabored respirations. Breath sounds clear to auscultation bilaterally and equal. No wheezes rales or rhonchi. HEART: Regular rate and rhythm without murmurs, rubs or gallops. ABDOMEN: Soft, nontender, normoactive bowel sounds. No guarding, no rebound. No masses appreciated. : Deferred MUSCULOSKELETAL: Patient has pain with palpation of the lumbar spine, there appears to be a mild bruise to the area. No acute deformity, some mild pain with palpation of lumbar paraspinals as well. He does have full trunk range of motion. Pain increases with trunk extension. Strength is 5 out of 5 in lower extremity is bilaterally. Normal extremities with adequate strength and normal range of motion, no pitting or edema. No clubbing or cyanosis. NEUROLOGICAL: Patient is alert and oriented x 3. Motor and sensory are also intact. Cranial nerves II through XII grossly intact. Symmetrical smile. Normal speech, normal gait. PSYCH: Normal mood, normal affect. SKIN: Warm, Dry, normal turgor, no rashes or lesions noted. Limitations: no limitations Course Vital Signs 06/11/20 06/11/20 18:10 20:30 Temperature 98.2 F Pulse Rate 97 69 Respiratory 18 16 Rate Blood Pressure 118/83 125/83 O2 Sat by Pulse 99 97 Oximetry Medical Decision Making - Medical Decision Making Patient is a 40-year-old male here for low back pain times one week after he slipped and fell. He does have a history of a L1 compression fracture in the past. He has no alarming symptoms, no concerns for cardiac cauda equina, he is in no acute distress. No neural deficits. X-rays the lumbar spine today show an old L1 compression fracture that is not significant different than old exam, no acute fracture seen. I discussed these findings with the patient. Patient was given IM Toradol and does report some mild improvement in his symptoms. I discussed the continue with Kary at home, will give him a starter pack of Tylenol 3's for more severe pain. He can follow up with his regular doctor. He is in agreement with this plan of care. Disposition Clinical Impression: Low back pain, Fall Disposition: HOME SELF-CARE Condition: Stable Instructions (If sedation given, give patient instructions): Acute Low Back Pain (ED) Additional Instructions: Please return to the Emergency Department if symptoms worsen or any other concerns. Continue with Aleve for pain, may alternate with Tylenol #3. May apply ice to the back, 20 minutes at a time, rest for 30 minutes. Follow-up with her regular doctor. Is patient prescribed a controlled substance at d/c from ED?: No Referrals: Nadir Guardado MD [Primary Care Provider] - 1-2 days
--- NOTE | 2020-06-11 19:54 | XR ---
EXAMINATION TYPE: XR lumbar spine 2 or 3V DATE OF EXAM: 06/11/2020 COMPARISON: 04/20/2019 HISTORY: Fall. Back pain. TECHNIQUE: 3 views FINDINGS: Lumbar vertebra have normal alignment. There is 50% anterior wedging of L1 vertebra that ap pears old. There is anterior osteophyte formation. Posterior elements are intact. Disc spaces are denis rly normal. Sacroiliac joints are normal. IMPRESSION: Old L1 compression fracture not significantly different than old exam. No acute fracture seen.
[2020-06-11] MEDS ORDERED: ACET/COD 300 MG/30 MG STARTER PACK 6 TAB BTL PO STA (20:24)
[2020-06-11 20:32] VITALS: BP 125/83; PULSE 69; RESP 16
== END 2020-06-11 20:32 | disposition home or self-care (01) ==
LOC: EC 18:04
DX: M54.5 Low back pain (principal); W01.0XXA Fall on same level from slipping, tripping and stumbling without subsequent striking against object, initial encounter; Z87.891 Personal history of nicotine dependence; Z88.5 Allergy status to narcotic agent; Z88.6 Allergy status to analgesic agent; Z87.311 Personal history of (healed) other pathological fracture; Z98.890 Other specified postprocedural states; Y92.009 Unspecified place in unspecified non-institutional (private) residence as the place of occurrence of the external cause
CPT/HCPCS: 72100; 96372; 99283; J1885

== ENCOUNTER 2020-09-06 18:21 | Emergency (ER) | payer OTHER ==
[2020-09-06 18:25] VITALS: BP 114/78; PULSE 93; RESP 18; TEMP 98.6
--- NOTE | 2020-09-06 19:28 | ED ---
Back Pain HPI - General Chief Complaint: Back Pain/Injury Stated Complaint: back pain Time Seen by Provider: 09/06/20 18:42 Source: patient Limitations: no limitations - History of Present Illness Initial Comments: Patient is a 40-year-old male presenting to the emergency Department with complaints of low back pain and increasing over the past 2 weeks. Patient states he doesn't history of chronic back pain and sees his PCP, he does take [place] as at home for pain. He states 2 weeks ago he slipped on some water in his house and fell down and states having increased pain since then. He denies any numbness and tingling to his lower extremities, no loss of bowel or bladder control. He denies any saddle paresthesias, no fevers. He denies any chest pain or shortness of breath. He has no further complaints at this time. Upon arrival to the ER, vitals are stable. - Related Data Home Medications Medication Instructions Recorded Confirmed Citalopram Hydrobromide [CeleXA] 40 mg PO HS 04/19/16 09/07/18 Previous Rx's Medication Instructions Recorded Baclofen 10 mg PO TID #20 tab 09/27/17 Naproxen [Naprosyn] 500 mg PO BID #20 tablet 09/27/17 predniSONE 50 mg PO DAILY 4 Days #4 tab 09/07/18 Allergies Allergy/AdvReac Type Severity Reaction Status Date / Time codeine AdvReac Nausea Verified 09/06/20 18:26 [From Tylenol-Codeine #3] ibuprofen [From Motrin] AdvReac Nausea & Verified 09/06/20 18:26 Vomiting & Diarrhea Review of Systems ROS Statement: Those systems with pertinent positive or pertinent negative responses have been documented in the HPI. ROS Other: All systems not noted in ROS Statement are negative. Past Medical History Past Medical History: Asthma Additional Past Medical History / Comment(s): compression fracture to back History of Any Multi-Drug Resistant Organisms: MRSA Date of last positivie culture/infection: 2005 MDRO Source:: generalized Past Surgical History: Orthopedic Surgery Additional Past Surgical History / Comment(s): vasectomy. Past Psychological History: No Psychological Hx Reported Smoking Status: Former smoker Past Alcohol Use History: Occasional Past Drug Use History: Marijuana General Exam - General Exam Comments Initial Comments: GENERAL: Patient is well-developed and well-nourished. Patient is nontoxic and in mild distress. HEAD: Atraumatic, normocephalic. EYES: Pupils equal round and reactive to light, extraocular movements intact, sclera anicteric, conjunctiva are normal. Eyelids were unremarkable. ENT: TMs normal, nares patent, oropharynx clear without exudates. Moist mucous membranes. NECK: Normal range of motion, supple without lymphadenopathy or JVD. LUNGS: Unlabored respirations. Breath sounds clear to auscultation bilaterally and equal. No wheezes rales or rhonchi. HEART: Regular rate and rhythm without murmurs, rubs or gallops. ABDOMEN: Soft, nontender, normoactive bowel sounds. No guarding, no rebound. No masses appreciated. : Deferred MUSCULOSKELETAL: Normal extremities with adequate strength and normal range of motion, no pitting or edema. No clubbing or cyanosis. Patient does have some tenderness to palpation of the lumbar area, there is some mild bruising present. He does have full trunk range of motion. NEUROLOGICAL: Patient is alert and oriented x 3. Motor and sensory are also intact. Cranial nerves II through XII grossly intact. Symmetrical smile. Normal speech, normal gait. PSYCH: Normal mood, normal affect. SKIN: Warm, Dry, normal turgor, no rashes or lesions noted. Limitations: no limitations Course Vital Signs 09/06/20 18:22 Temperature 98.6 F Pulse Rate 93 Respiratory 18 Rate Blood Pressure 114/78 O2 Sat by Pulse 94 L Oximetry Medical Decision Making - Medical Decision Making Patient is a 40-year-old male here for low back pain has been increasing over the past 2 weeks. He does have history of chronic back pain, takes [place]'s. His exam reveals no acute neuro deficits, he does have some mild bruising present in his low back. The depths of the fall 2 weeks ago, did order lumbar x-rays which reveal no acute abnormality, he does have a chronic compression fracture L1, no changes though. I discussed these findings with the patient. This is most likely an aggravation of his old injury. Patient will receive morphine today for his pain, I did discuss with him that I cannot give him additional pain medicine go home with as he already get prescription from Dr. Guardado. He can follow-up with his PCP. Patient is stable for discharge. Patient is in agreement with this plan of care. Return parameters were discussed with the patient and they verbalized understanding. Case discussed with Dr. Herrera. Disposition Clinical Impression: Acute exacerbation of chronic low back pain Disposition: HOME SELF-CARE Condition: Stable Instructions (If sedation given, give patient instructions): Acute Low Back Pain (ED) Additional Instructions: Please return to the Emergency Department if symptoms worsen or any other concerns. Please continue with hot and cold packs to the area for discomfort, continue with your already prescribed muscle relaxers and pain medication. If symptoms increase, follow-up with your PCP. Is patient prescribed a controlled substance at d/c from ED?: No Referrals: Nadir Guardado MD [Primary Care Provider] - 1-2 days Time of Disposition: 19:50
--- NOTE | 2020-09-06 19:34 | XR ---
Result: History: Low back pain status post fall 2 weeks ago.. Comparison: 06/11/2020. Technique: 3 views of the lumbar spine. Findings: The bone mineralization is normal. Images of the lumbar spine demonstrate 5 lumbar-type vertebrae. There is no acute fracture or sublux ation. Chronic moderate L1 compression fracture with associated moderate T12-L1 spondylosis. No sign ificant progression of height loss. Otherwise the remaining vertebral body and disc heights are gross ly maintained. Impression: No acute osseous abnormality. Chronic findings as above.
[2020-09-06] MEDS ORDERED: MORPHINE SULFATE 4 MG/ML SYRINGE IM STA (19:47)
== END 2020-09-06 19:55 | disposition home or self-care (01) ==
LOC: EC 18:21
DX: G89.29 Other chronic pain (principal); M54.5 Low back pain; J45.909 Unspecified asthma, uncomplicated; Z79.1 Long term (current) use of non-steroidal anti-inflammatories (NSAID); Z87.891 Personal history of nicotine dependence
CPT/HCPCS: 72100; 99283; 96372; J2270

== ENCOUNTER 2020-09-11 13:51 | Emergency (ER) | payer OTHER ==
[2020-09-11 14:45] VITALS: PULSE 65; RESP 18; TEMP 97.4
[2020-09-11] MEDS ORDERED: HYDROcodone/APAP 7.5-325MG 1 EACH TAB PO ONE (14:45)
[2020-09-11] MEDS ORDERED: ACET/COD 300 MG/30 MG STARTER PACK 6 TAB BTL PO STA (14:45)
[2020-09-11] MEDS ORDERED: PENICILLIN VK 500MG STARTER 4 TAB BTL PO STA (14:45)
--- NOTE | 2020-09-11 14:47 | ED ---
General Adult HPI - General Stated complaint: Facial Swelling (RT) Time Seen by Provider: 09/11/20 14:44 Source: patient, family, RN notes reviewed Mode of arrival: ambulatory Limitations: no limitations - History of Present Illness Initial comments: 40-year-old male presents emergency Department chief complaint of right-sided cheek pain and swelling. Patient states that this started overnight. Patient states is very painful. Patient states that he's had infections in the past. Patient states he has used ibuprofen. Denies any known fevers or chills no difficulty swallowing. - Related Data Home Medications Medication Instructions Recorded Confirmed Citalopram Hydrobromide [CeleXA] 40 mg PO HS 04/19/16 09/07/18 Previous Rx's Medication Instructions Recorded Baclofen 10 mg PO TID #20 tab 09/27/17 Naproxen [Naprosyn] 500 mg PO BID #20 tablet 09/27/17 predniSONE 50 mg PO DAILY 4 Days #4 tab 09/07/18 Penicillin V Potassium [Pen Vee K] 500 mg PO QID #40 tablet 09/11/20 Allergies Allergy/AdvReac Type Severity Reaction Status Date / Time codeine AdvReac Nausea Verified 09/06/20 18:26 [From Tylenol-Codeine #3] ibuprofen [From Motrin] AdvReac Nausea & Verified 09/06/20 18:26 Vomiting & Diarrhea Review of Systems ROS Statement: Those systems with pertinent positive or pertinent negative responses have been documented in the HPI. ROS Other: All systems not noted in ROS Statement are negative. Past Medical History Past Medical History: Asthma Additional Past Medical History / Comment(s): compression fracture to back History of Any Multi-Drug Resistant Organisms: MRSA Date of last positivie culture/infection: 2005 MDRO Source:: generalized Past Surgical History: Orthopedic Surgery Additional Past Surgical History / Comment(s): vasectomy. Past Psychological History: No Psychological Hx Reported Smoking Status: Former smoker Past Alcohol Use History: Occasional Past Drug Use History: Marijuana General Exam Limitations: no limitations General appearance: alert, in no apparent distress Head exam: Present: atraumatic, normocephalic, normal inspection Eye exam: Present: normal appearance, PERRL, EOMI. Absent: scleral icterus, conjunctival injection, periorbital swelling ENT exam: Present: mucous membranes moist. Absent: normal oropharynx (poor dentition, multiple dental fractures, dental caries, mild right cheeck swelling) Neck exam: Present: normal inspection, full ROM. Absent: tenderness, meningismus, lymphadenopathy Respiratory exam: Present: normal lung sounds bilaterally. Absent: respiratory distress, wheezes, rales, rhonchi, stridor Cardiovascular Exam: Present: regular rate, normal rhythm, normal heart sounds. Absent: systolic murmur, diastolic murmur, rubs, gallop, clicks Course Vital Signs 09/11/20 14:42 Temperature 97.4 F L Pulse Rate 65 Respiratory 18 Rate Blood Pressure 158/111 O2 Sat by Pulse 98 Oximetry Disposition Clinical Impression: Dental infection Disposition: HOME SELF-CARE Condition: Stable Instructions (If sedation given, give patient instructions): Toothache (ED) Additional Instructions: Please return to the Emergency Department if symptoms worsen or any other concerns. Prescriptions: Penicillin V Potassium [Pen Vee K] 500 mg PO QID #40 tablet Is patient prescribed a controlled substance at d/c from ED?: No Referrals: Nadir Guardado MD [Primary Care Provider] - 1-2 days Time of Disposition: 14:47
[2020-09-11 14:57] VITALS: BP 158/90
== END 2020-09-11 14:55 | disposition home or self-care (01) ==
LOC: EC 13:51
DX: K04.7 Periapical abscess without sinus (principal); J45.909 Unspecified asthma, uncomplicated; Z87.891 Personal history of nicotine dependence; F12.90 Cannabis use, unspecified, uncomplicated
CPT/HCPCS: 99283

== ENCOUNTER 2021-01-07 15:27 | Observation (INO) | payer OTHER ==
[2021-01-07] MEDS ORDERED: MORPHINE SULFATE 4 MG/ML SYRINGE IVP STA (16:41)
[2021-01-07] MEDS ORDERED: ALBUTEROL HFA INHALER INHALATION STA (16:42)
[2021-01-07] MEDS ORDERED: predniSONE 20 MG TAB PO STA (16:42)
[2021-01-07 17:24] LABS: Basophils # (A) 0.1 k/uL (0-0.2); Basophils % (A) 1 %; Eosinophils # (A) 0.2 k/uL (0-0.7); Eosinophils % (A) 2 %; HCT 46.9 % (39.0-53.0); HGB 16.1 gm/dL (13.0-17.5); Lymphocytes # (A) 2.1 k/uL (1.0-4.8); Lymphocytes % (A) 27 %; MCH 30.4 pg (25.0-35.0); MCHC 34.4 g/dL (31.0-37.0); MCV 88.4 fL (80.0-100.0); Mean Platelet Volume 7.4; Monocytes # (A) 0.6 k/uL (0-1.0); Monocytes % (A) 7 %; Neutrophils # (A) 4.8 k/uL (1.3-7.7); Neutrophils % (A) 61 %; Platelet Count 249 k/uL (150-450); RBC 5.31 m/uL (4.30-5.90); RDW 14.2 % (11.5-15.5); WBC 7.9 k/uL (3.8-10.6)
[2021-01-07 17:29] LABS: ALT 24 U/L (4-49); AST 23 U/L (17-59); African American GFR (CKD) >90 (>60 ml/min/1.73 sqM); Albumin 4.4 g/dL (3.5-5.0); Alkaline Phosphatase 76 U/L (38-126); Anion Gap 8 mmol/L; Blood Urea Nitrogen 13 mg/dL (9-20); Calcium 9.5 mg/dL (8.4-10.2); Carbon Dioxide 24 mmol/L (22-30); Chloride 107 mmol/L (98-107); Glucose 124 mg/dL (74-99); Non-African American GFR(CKD) >90 (>60 ml/min/1.73 sqM); Potassium 4.5 mmol/L (3.5-5.1); Sodium 139 mmol/L (137-145); Total Bilirubin 0.3 mg/dL (0.2-1.3); Total Protein 7.3 g/dL (6.3-8.2)
--- NOTE | 2021-01-07 17:33 | ED ---
General Adult HPI - General Chief complaint: Extremity Problem,Nontraumatic Stated complaint: Left leg swollen Time Seen by Provider: 01/07/21 15:45 Source: patient, RN notes reviewed, old records reviewed Mode of arrival: ambulatory Limitations: no limitations - History of Present Illness Initial comments: Patient is a 40-year-old male with past medical history remarkable for asthma who presents emergency Department complaining of a 2 to three-day history of left lower extremity swelling and pain as well as some mild exertional dyspnea. He states that he knows the dyspnea worsened yesterday. He denies any chest pain, abdominal pain, nausea, vomiting. Denies any headaches, weakness, numbness. Denies any hemoptysis, cough. States he does have a history of asthma but has no improvement with albuterol at home. States he does have a family medical history of DVT and pulmonary embolism. Is concerned this may be the cause of his current symptoms. Denies any sick contacts. No known Covid Exposure. Denies any worsening orthopnea, paroxysmal nocturnal dyspnea. - Related Data Home Medications Medication Instructions Recorded Confirmed Citalopram Hydrobromide [CeleXA] 40 mg PO HS 04/19/16 01/07/21 Albuterol Sulfate [Proair Hfa] 1 - 2 puff INHALATION RT-Q6H PRN 01/07/21 01/07/21 Cetirizine HCl [Zyrtec] 10 mg PO DAILY 01/07/21 01/07/21 Diclofenac Sodium Gel [Voltaren 4 gm TOPICAL DAILY PRN 01/07/21 01/07/21 Gel] Fluticasone/Salmeterol [Advair Hfa 2 puff INHALATION RT-BID 01/07/21 01/07/21 115-21 Mcg Inhaler] HYDROcodone/APAP 5-325MG [Alpine 1 tab PO Q12H PRN 01/07/21 01/07/21 5-325] Ibuprofen [Motrin Ib] 600 mg PO Q8H PRN 01/07/21 01/07/21 Meloxicam [Mobic] 15 mg PO DAILY 01/07/21 01/07/21 Naproxen [Naprosyn] 500 mg PO BID PRN 01/07/21 01/07/21 hydrOXYzine pamoate [Vistaril] 50 mg PO BID PRN 01/07/21 01/07/21 methocarbamoL [Robaxin] 500 mg PO BID 01/07/21 01/07/21 Allergies Allergy/AdvReac Type Severity Reaction Status Date / Time codeine AdvReac Nausea Verified 01/07/21 17:03 [From Tylenol-Codeine #3] ibuprofen [From Motrin] AdvReac Nausea & Verified 01/07/21 17:03 Vomiting & Diarrhea Review of Systems ROS Statement: Those systems with pertinent positive or pertinent negative responses have been documented in the HPI. Review of Systems: CONST: Denies fever EYES: Denies blurry vision ENT: Denies nasal congestion C/V: Denies Chest pain RESP: Endorses shortness of breath GI: Denies abdominal pain : Denies dysuria SKIN: Denies rash. MSK: Endorses leg swelling NEURO: Denies headache ROS Other: All systems not noted in ROS Statement are negative. Past Medical History Past Medical History: Asthma Additional Past Medical History / Comment(s): compression fracture to back History of Any Multi-Drug Resistant Organisms: MRSA Date of last positivie culture/infection: 2005 MDRO Source:: generalized Past Surgical History: Orthopedic Surgery Additional Past Surgical History / Comment(s): vasectomy. Past Psychological History: No Psychological Hx Reported Smoking Status: Former smoker Past Alcohol Use History: Occasional Past Drug Use History: Marijuana General Exam - General Exam Comments Initial Comments: General: Appears in no acute distress. HEAD: Normal with no signs of head trauma. EYES: PERRLA, EOMI, conjunctiva normal, no discharge. ENT: Hearing grossly intact, normal oropharynx. RESPIRATORY: Clear breath sounds bilaterally. No wheezes, rales, or rhonchi. No increased work of breathing. No retractions. No tachypnea. C/V: Regular rate and rhythm. S1 and S2 auscultated, no edema, peripheral pulses 2+ and intact throughout ABD: Abd is soft, nontender, nondistended EXT: Normal range of motion, no obvious deformity. Patient does have swelling of the left calf with tenderness to palpation in the popliteal space. There is no erythema. There is slight warmth. SKIN: No rashes or lesions observed on exposed skin. NEURO: Alert and oriented x 4. Cranial nerves II-XII intact. No focal sensory or strength deficits. Limitations: no limitations Course Vital Signs 01/07/21 01/07/21 15:41 18:35 Temperature 97.8 F Pulse Rate 72 93 Respiratory 17 20 Rate Blood Pressure 124/82 O2 Sat by Pulse 95 Oximetry Medical Decision Making - Medical Decision Making Based on patient's presentation and physical exam, I'm concerned for possible cardiac cause for his current symptoms, but cannot rule out the possibility of DVT or pulmonary embolism. Patient does not PERC out. Well's score is moderate at 3. Therefore we will obtain a d-dimer screening tool for pulmonary embolism. Overconcerned for left lower extremity DVT, we will obtain a venous duplex. Cardiac workup including EKG, troponin, chest x-ray and basic labs also be obtained. This patient does have very mild end expiratory wheezing, we will treat his asthma with 60 mg by mouth prednisone as well as an albuterol inhaler. Comfortable be obtained. Patiently will be sent medically treated with 4 mg of IV morphine for his pain. He was in agreement with this plan. Patiently connected to continuous cardiac monitoring while he is in the department. Patient's EKG shows no acute signs of ischemia. Laboratory studies are remarkable for an elevated d-dimer 2.75. Troponin is negative. Covert is negative. Chest x-ray reveals no acute cardiopulmonary process. Venous duplex of the left lower extremity reveals suspicion for a DVT at this time. I did discuss with the patient results of his imaging as well as his labs and requested that we obtain a CT angiogram of the chest to rule out pulmonary embolism, he was in agreement with this plan. Patient's CTA revealed bilateral pulmonary emboli with no evidence of saddle embolus. There is no evidence of right heart strain on CT. At this time, patient was placed on high intensity heparin, given Alpine for pain management, and Ativan for anxiety. I did discuss with him that he will be admitted to the hospital. He was in agreement with this plan. Patient's vital signs have remained stable throughout his stay in the emergency department. He is hemodynamically stable at this time still. I consulted vascular surgery, Dr. Shi, who was in agreement with this plan and requested a cardiac echo to assess for right heart strain. This was ordered. I spoke with the admitting physician, Dr. Guardado who accepted the patient. I also spoke with cardiology, Dr. Baez regarding the consultation and he was in agreement with the plan. She was therefore admitted to the hospital and serous condition to telemetry bed. - Lab Data Result diagrams: 01/07/21 17:08 01/07/21 17:08 Lab Results 01/07/21 01/07/21 01/07/21 Range/Units 17:08 17:08 17:08 WBC 7.9 (3.8-10.6) k/uL RBC 5.31 (4.30-5.90) m/uL Hgb 16.1 (13.0-17.5) gm/dL Hct 46.9 (39.0-53.0) % MCV 88.4 (80.0-100.0) fL MCH 30.4 (25.0-35.0) pg MCHC 34.4 (31.0-37.0) g/dL RDW 14.2 (11.5-15.5) % Plt Count 249 (150-450) k/uL MPV 7.4 Neutrophils % 61 % Lymphocytes % 27 % Monocytes % 7 % Eosinophils % 2 % Basophils % 1 % Neutrophils # 4.8 (1.3-7.7) k/uL Lymphocytes # 2.1 (1.0-4.8) k/uL Monocytes # 0.6 (0-1.0) k/uL Eosinophils # 0.2 (0-0.7) k/uL Basophils # 0.1 (0-0.2) k/uL PT 9.8 (9.0-12.0) sec INR 0.9 (<1.2) APTT 22.7 (22.0-30.0) sec D-Dimer 2.75 H (<0.60) mg/L FEU Sodium 139 (137-145) mmol/L Potassium 4.5 (3.5-5.1) mmol/L Chloride 107 (98-107) mmol/L Carbon Dioxide 24 (22-30) mmol/L Anion Gap 8 mmol/L BUN 13 (9-20) mg/dL Creatinine 0.81 (0.66-1.25) mg/dL Est GFR (CKD-EPI)AfAm >90 (>60 ml/min/1.73 sqM) Est GFR (CKD-EPI)NonAf >90 (>60 ml/min/1.73 sqM) Glucose 124 H (74-99) mg/dL Calcium 9.5 (8.4-10.2) mg/dL Total Bilirubin 0.3 (0.2-1.3) mg/dL AST 23 (17-59) U/L ALT 24 (4-49) U/L Alkaline Phosphatase 76 (38-126) U/L Troponin I (0.000-0.034) ng/mL Total Protein 7.3 (6.3-8.2) g/dL Albumin 4.4 (3.5-5.0) g/dL Coronavirus (PCR) (Not Detectd) 01/07/21 01/07/21 Range/Units 17:08 17:13 WBC (3.8-10.6) k/uL RBC (4.30-5.90) m/uL Hgb (13.0-17.5) gm/dL Hct (39.0-53.0) % MCV (80.0-100.0) fL MCH (25.0-35.0) pg MCHC (31.0-37.0) g/dL RDW (11.5-15.5) % Plt Count (150-450) k/uL MPV Neutrophils % % Lymphocytes % % Monocytes % % Eosinophils % % Basophils % % Neutrophils # (1.3-7.7) k/uL Lymphocytes # (1.0-4.8) k/uL Monocytes # (0-1.0) k/uL Eosinophils # (0-0.7) k/uL Basophils # (0-0.2) k/uL PT (9.0-12.0) sec INR (<1.2) APTT (22.0-30.0) sec D-Dimer (<0.60) mg/L FEU Sodium (137-145) mmol/L Potassium (3.5-5.1) mmol/L Chloride (98-107) mmol/L Carbon Dioxide (22-30) mmol/L Anion Gap mmol/L BUN (9-20) mg/dL Creatinine (0.66-1.25) mg/dL Est GFR (CKD-EPI)AfAm (>60 ml/min/1.73 sqM) Est GFR (CKD-EPI)NonAf (>60 ml/min/1.73 sqM) Glucose (74-99) mg/dL Calcium (8.4-10.2) mg/dL Total Bilirubin (0.2-1.3) mg/dL AST (17-59) U/L ALT (4-49) U/L Alkaline Phosphatase (38-126) U/L Troponin I <0.012 (0.000-0.034) ng/mL Total Protein (6.3-8.2) g/dL Albumin (3.5-5.0) g/dL Coronavirus (PCR) Not Detected (Not Detectd) - EKG Data -: EKG Interpreted by Me EKG Comments: 12-lead Electrocardiogram Interpretation Note EKG was reviewed and interpreted by myself. 12-lead ECG performed at 1719 is interpreted by me as revealing normal sinus rhythm at a rate of 84 beats per min [place]. Left axis deviation. TN interval is 166 ms, QRS duration is 102 ms, QTc is 491 ms.. There were no ST or T wave abnormalities to suggest myocardial ischemia or injury. R wave progression across the precordium was satisfactory. By my interpretation this EKG is non-diagnostic for acute ischemia. Disposition Clinical Impression: Deep vein thrombosis (DVT) of lower extremity, Bilateral pulmonary embolism, Left leg pain, Elevated d-dimer Disposition: ADMITTED IP TO THIS HOSP Condition: Serious Referrals: Nadir Guardado MD [Primary Care Provider] - 1-2 days
[2021-01-07 17:51] LABS: INR 0.9 (<1.2); Partial Thromboplastin Time 22.7 sec (22.0-30.0); Prothrombin Time 9.8 sec (9.0-12.0)
--- NOTE | 2021-01-07 18:29 | XR ---
EXAMINATION TYPE: XR chest 2V DATE OF EXAM: 01/07/2021 COMPARISON: 06/06/2019 HISTORY: Short of breath. Leg swelling. TECHNIQUE: FINDINGS: Heart and mediastinum are normal. Lungs are clear. Diaphragm is normal. Bony thorax appears normal. IMPRESSION: Normal chest. No change.
--- NOTE | 2021-01-07 18:32 | US ---
EXAMINATION TYPE: US venous doppler duplex LE LT DATE OF EXAM: 01/07/2021 6:07 PM COMPARISON: US CLINICAL HISTORY: dyspnea. Dyspnea per order. Pain within left upper calf. No hx of DVT. SIDE PERFORMED: Left TECHNIQUE: The lower extremity deep venous system is examined utilizing real time linear array sonog luz elena with graded compression, doppler sonography and color-flow sonography. VESSELS IMAGED: Common Femoral Vein Deep Femoral Vein Greater Saphenous Vein * Femoral Vein Popliteal Vein Small Saphenous Vein * Proximal Calf Veins (* superficial vessels) Limited due to body habitus. Left Leg: Internal echoes seen within two pairs of veins anterior to the popliteal vein. Possible t hrombus within gastrocnemius veins? These four vessels do not appear to compress. Little to no colo r flow is seen. These vessels show internal echoes in segments down through the upper calf at patient 's area of concern. All remaining veins imaged appear to compress and show color flow. IMPRESSION: There is limited deep vein thrombosis in the upper calf veins. No evidence of deep vein thrombosis in the femoral and popliteal veins.
--- NOTE | 2021-01-07 19:15 | CT ---
EXAMINATION TYPE: CT chest angio for PE DATE OF EXAM: 01/07/2021 COMPARISON: None HISTORY: Elevated d-dimer, shortness of breath, positive DVT. CT DLP: 968.4 mGycm Automated exposure control for dose reduction was used. CONTRAST: Performed with IV Contrast, patient injected with 100 mL of Isovue 370. There are 3-D post processed images. Images obtained from the thoracic inlet to the diaphragm with IV contrast. The lungs are clear of infiltrate. There is no evidence of a pulmonary mass. There is no pleural effu elaine. There is no pericardial effusion. Heart size is normal. Upper abdominal soft tissues are intact . There is no mediastinal adenopathy. There are no hilar masses. Thoracic aorta appears intact. There i s no aneurysm or dissection. The ascending aorta measures 3.5 cm. There is suboptimal contrast density in the pulmonary arteries. There are large filling defects in th e right pulmonary artery extending into the right lower lobe. Thrombus is seen up to the right main p ulmonary artery. There is also involvement of the right upper lobe. There are filling defects in the left upper lobe pulmonary artery. The thoracic vertebra appear intact. There is no compression fracture. IMPRESSION: Numerous large emboli in the right pulmonary artery and its branches. Left upper lobe pulmonary emboli. No evidence of right heart strain. This exam was discussed with Dr. Aguilar at 7:15 PM.
[2021-01-07] MEDS ORDERED: HEPARIN SODIUM 1,000 UN/ML (10ML VL) IV ONE (19:17)
[2021-01-07] MEDS ORDERED: HEPARIN SODIUM 1,000 UN/ML (10ML VL) IV PRN (19:17)
[2021-01-07] MEDS ORDERED: NALOXONE 0.4 MG/ML 1 ML VIAL IV PRN (19:34)
[2021-01-07] MEDS ORDERED: HYDROcodone/APAP 7.5-325MG 1 EACH TAB PO ONE (19:40)
[2021-01-07] MEDS ORDERED: LORazepam 1 MG TAB PO STA (19:44)
[2021-01-07] MEDS: HEPARIN SOD,PORK IN 0.45% NACL 25,000 UNIT in 0.45% NACL 1 250ML.BAG IV SCH (19:54)
[2021-01-07] MEDS ORDERED: HYDROcodone/APAP 5-325MG 1 EACH TAB PO PRN (20:00)
[2021-01-07] MEDS ORDERED: CITALOPRAM HYDROBROMIDE 20 MG TAB PO SCH (21:00)
[2021-01-07] MEDS ORDERED: LORazepam 2 MG/ML INJ IV PRN (21:15)
[2021-01-07] MEDS ORDERED: traZODone HCL 50 MG TAB PO PRN (21:16)
[2021-01-07] MEDS: HYDROcodone/APAP 5-325MG 1 EACH TAB PO PRN (21:29)
[2021-01-08] MEDS: SYMBICORT 160-4.5 MCG INHALER INHALATION SCH ×2 (00:19→07:49)
[2021-01-08] MEDS: HEPARIN SOD,PORK IN 0.45% NACL 25,000 UNIT in 0.45% NACL 1 250ML.BAG IV SCH (07:10)
[2021-01-08 07:51] LABS: Basophils # (A) 0.1 k/uL (0-0.2); Basophils % (A) 0 %; Eosinophils % (A) 0 %; HCT 46.9 % (39.0-53.0); HGB 15.6 gm/dL (13.0-17.5); Lymphocytes # (A) 1.7 k/uL (1.0-4.8); Lymphocytes % (A) 14 %; MCHC 33.1 g/dL (31.0-37.0); MCV 90.4 fL (80.0-100.0); Mean Platelet Volume 8.2; Monocytes # (A) 0.8 k/uL (0-1.0); Monocytes % (A) 7 %; Neutrophils # (A) 9.3 k/uL (1.3-7.7); Neutrophils % (A) 77 %; Platelet Count 249 k/uL (150-450); RBC 5.19 m/uL (4.30-5.90); RDW 13.8 % (11.5-15.5); WBC 12.1 k/uL (3.8-10.6)
[2021-01-08] MEDS: HYDROcodone/APAP 5-325MG 1 EACH TAB PO PRN ×2 (08:02→16:06)
--- NOTE | 2021-01-08 11:01 | ECHOF ---
Referral Reason:pulmonary embolism, assess for right heart strain MEASUREMENTS -------- HEIGHT: 188.0 cm WEIGHT: 159.7 kg BP: 118/70 RVIDd: 2.9 cm (< 3.3) IVSd: 0.8 cm (0.6 - 1.1) LVIDd: 4.4 cm (3.9 - 5.3) LVPWd: 1.1 cm (0.6 - 1.1) IVSs: 1.9 cm LVIDs: 2.6 cm LVPWs: 1.5 cm Ao Diam: 3.9 cm (2.0 - 3.7) AV Cusp: 2.7 cm (1.5 - 2.6) LA Diam: 3.5 cm (2.7 - 3.8) MV EXCURSION: 23.905 mm (> 18.000) MV EF SLOPE: 174 mm/s (70 - 150) EPSS: 0.2 cm MV E Pierre: 0.76 m/s MV DecT: 291 ms MV A Pierre: 0.49 m/s MV E/A Ratio: 1.55 RAP: 5.00 mmHg RVSP: 12.99 mmHg FINDINGS -------- This was a technically difficult study with suboptimal views. The left ventricular size is normal. Left ventricular wall thickness is normal. Overall left vent ricular systolic function is normal with, an EF between 55 - 60 %. The right ventricle is normal in size. The left atrial size is normal. The right atrial size is normal. Lumason used The aortic valve is trileaflet and appears structurally normal. The mitral valve is normal. There is trace mitral regurgitation. The tricuspid valve appears structurally normal. Trace tricuspid regurgitation present. Right davida tricular systolic pressure is normal at < 35 mmHg. There is no pulmonic regurgitation present. The aortic root is dilated measuring 3.9 cm. IVC Not well visulized. There is no pericardial effusion. CONCLUSIONS -------- 1. The left ventricular size is normal. 2. Left ventricular wall thickness is normal. 3. Overall left ventricular systolic function is normal with, an EF between 55 - 60 %. 4. There is trace mitral regurgitation. 5. Trace tricuspid regurgitation present. 6. The aortic root is dilated measuring 3.9 cm. 7. IVC Not well visulized. 8. There is no pericardial effusion. [employer] MANAGER: Ольга Layton RDCS
[2021-01-08 11:48] VITALS: BP 134/72; PULSE 56; RESP 18; TEMP 98.8
--- NOTE | 2021-01-08 13:10 | P.CRDCN ---
History of Present Illness History of present illness: HISTORY OF PRESENTING ILLNESS This is a pleasant 40-year-old male past medical history significant for asthma, marijuana use. 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 We have been asked to se [place]ett in consultation for pulmonary embolism. Patient is seen and examined at bedside, no acute distress. He states he's been having left calf pain for over 2 weeks. Patient states over the past 2 days, he has been having worsening exertional dyspnea. He went to a fair over the weekend and had worsening left lower calf pain. After this he went to his PCP and was treated with antibiotic cream. His left lower extremity pain did not improve, and over the past 2 days she's had worsening shortness of breath. He does have symptoms of obstructive sleep apnea. Per him and his he frequently stops breathing in the middle of the night. He is currently trying to get tested for this outpatient. He denies any chest pain, palpitations, light headedness, dizziness. Denies any worsening orthopnea, paroxysmal nocturnal dyspnea. He denies covid-19 infection. He denies any history of hypertension, PA, stroke, dyslipidemia. He denies any family history of cardiac disease. DIAGNOSTICS EKG reveals sinus rhythm, heart rate 84, no significant STT wave abnormalities, prolonged QTc 491ms CT chest revealed numerous large emboli in the right pulmonary artery and its branches. Left upper lobe pulmonary emboli no evidence of right heart strain. Ultrasound LLE- negative for DVT Chest xray no acute cardiopulmonary process. Laboratory reviewed, d-dimer 2.75, WBC 12.1, hemoglobin 15.6, platelets 249, sodium 139, potassium 4.5, BUN 13, serum creatinine 0.8, troponin negative 1, COVID-19 negative REVIEW OF SYSTEMS At the time of my exam: CONSTITUTIONAL: Denies fever or chills. CARDIOVASCULAR: +shortness of breath Denies chest pain, orthopnea, PND or palpitations. RESPIRATORY: Denies cough. GASTROINTESTINAL: Denies abdominal pain, diarrhea, constipation, nausea or vomiting. MUSCULOSKELETAL: Left calf pain NEUROLOGIC: Denies numbness, tingling, headacbe or weakness. ENDOCRINE: Denies fatigue, weight change, polydipsia or polyurina. GENITOURINARY: Denies burning, hematuria or urgency with micturation. HEMATOLOGIC: Denies history of anemia or bleeding. PHYSICAL EXAMINATION Blood pressure 117/78 heart rate 66 afebrile and maintaining oxygen saturation on 90% room air. CONSTITUTIONAL: No apparent distress. HEENT: Head is normocephalic. Pupils are equal, round. Sclerae anicteric. Mucous membranes of the mouth are moist. No JVD. No carotid bruit. CHEST EXAMINATION: Lungs are clear to auscultation. No chest wall tenderness is noted on palpation or with deep breathing. HEART EXAMINATION: Regular rate and rhythm. S1, S2 heard. No murmurs, gallops or rub. ABDOMEN: Soft, nontender. Positive bowel sounds. EXTREMITIES: 2+ peripheral pulses, moderate left LLE edema, left lower extremity tenderness NEUROLOGIC EXAMINATION: Patient is awake, alert and oriented x3. ASSESSMENT Acute Bilateral pulmonary embolism History of Asthma PLAN Continue IV heparin Echocardiogram ordered will review results Further recommendations based on clinical course Nurse Practitioner note has been reviewed, I agree with a documented findings and plan of care. Patient was seen and examined. Past Medical History Past Medical History: Asthma Additional Past Medical History / Comment(s): compression fracture to back History of Any Multi-Drug Resistant Organisms: MRSA Date of last positivie culture/infection: 2005 MDRO Source:: generalized Past Surgical History: Orthopedic Surgery Additional Past Surgical History / Comment(s): vasectomy. Past Psychological History: No Psychological Hx Reported Smoking Status: Former smoker Past Alcohol Use History: Occasional Past Drug Use History: Marijuana Medications and Allergies Home Medications Medication Instructions Recorded Confirmed Type Citalopram Hydrobromide [CeleXA] 40 mg PO HS 04/19/16 01/07/21 History Albuterol Sulfate [Proair Hfa] 1 - 2 puff INHALATION RT-Q6H PRN 01/07/21 01/07/21 History Cetirizine HCl [Zyrtec] 10 mg PO DAILY 01/07/21 01/07/21 History Diclofenac Sodium Gel [Voltaren 4 gm TOPICAL DAILY PRN 01/07/21 01/07/21 History Gel] Fluticasone/Salmeterol [Advair Hfa 2 puff INHALATION RT-BID 01/07/21 01/07/21 History 115-21 Mcg Inhaler] HYDROcodone/APAP 5-325MG [[place] 1 tab PO Q12H PRN 01/07/21 01/07/21 History 5-325] Ibuprofen [Motrin Ib] 600 mg PO Q8H PRN 01/07/21 01/07/21 History Meloxicam [Mobic] 15 mg PO DAILY 01/07/21 01/07/21 History Naproxen [Naprosyn] 500 mg PO BID PRN 01/07/21 01/07/21 History hydrOXYzine pamoate [Vistaril] 50 mg PO BID PRN 01/07/21 01/07/21 History methocarbamoL [Robaxin] 500 mg PO BID 01/07/21 01/07/21 History Allergies Allergy/AdvReac Type Severity Reaction Status Date / Time codeine AdvReac Nausea Verified 01/07/21 17:03 [From Tylenol-Codeine #3] ibuprofen [From Motrin] AdvReac Nausea & Verified 01/07/21 17:03 Vomiting & Diarrhea Physical Exam Vitals: Vital Signs Temp Pulse Pulse Resp BP BP Pulse Ox 01/08/21 04:00 98.3 F 74 18 118/70 95 01/08/21 02:00 77 18 01/08/21 00:00 70 18 124/76 94 L 01/07/21 20:00 77 18 01/07/21 19:48 98.8 F 77 18 134/86 93 L 01/07/21 18:35 93 20 01/07/21 15:41 97.8 F 72 17 124/82 95 Intake and Output 01/07/21 01/08/21 01/08/21 22:59 06:59 14:59 Intake Total 240 320 Output Total 450 Balance 240 -130 Intake: Intake, IV Titration 80 Amount Heparin Sod,Pork in 0.45% 80 NaCl 25,000 unit In 0.45 % NaCl 1 250ml.bag @ 14.5 UNITS/KG/HR 23.02 mls/hr IV .[id number] [facility] Rx#: [id number] Oral 240 240 Output: Urine 450 Other: Weight 158.757 kg 160 kg Results 01/08/21 06:53 01/07/21 17:08 Cardiac Enzymes 01/07/21 01/07/21 Range/Units 17:08 17:08 AST 23 (17-59) U/L Troponin I <0.012 (0.000-0.034) ng/mL Coagulation 01/07/21 01/08/21 Range/Units 17:08 00:27 PT 9.8 (9.0-12.0) sec APTT 22.7 47.3 H (22.0-30.0) sec CBC 01/07/21 Range/Units 17:08 WBC 7.9 (3.8-10.6) k/uL RBC 5.31 (4.30-5.90) m/uL Hgb 16.1 (13.0-17.5) gm/dL Hct 46.9 (39.0-53.0) % Plt Count 249 (150-450) k/uL Comprehensive Metabolic Panel 01/07/21 Range/Units 17:08 Sodium 139 (137-145) mmol/L Potassium 4.5 (3.5-5.1) mmol/L Chloride 107 (98-107) mmol/L Carbon Dioxide 24 (22-30) mmol/L BUN 13 (9-20) mg/dL Creatinine 0.81 (0.66-1.25) mg/dL Glucose 124 H (74-99) mg/dL Calcium 9.5 (8.4-10.2) mg/dL AST 23 (17-59) U/L ALT 24 (4-49) U/L Alkaline Phosphatase 76 (38-126) U/L Total Protein 7.3 (6.3-8.2) g/dL Albumin 4.4 (3.5-5.0) g/dL Current Medications Generic Name Dose Route Start Last Admin Trade Name Freq PRN Reason Stop Dose Admin Hydrocodone Bitart/Acetaminophen 1 each 01/07/21 21:18 01/07/21 21:29 Hydrocodone/Apap 5-325mg 1 Each Tab PO 1 each Q6HR PRN Administration Pain Budesonide/Formoterol Fumarate 2 puff 01/07/21 20:00 01/08/21 00:19 Symbicort 160-4.5 Mcg Inhaler INHALATION Not Given RT-BID JORGE Citalopram Hydrobromide 40 mg 01/07/21 21:00 01/07/21 21:29 Citalopram Hydrobromide 20 Mg Tab PO 40 mg HS JORGE Administration Heparin Sodium (Porcine) 0 unit 01/07/21 19:17 Heparin Sodium 1,000 Un/Ml (10ml Vl) IV PER PROTOCOL PRN Low PTT Protocol Heparin Sodium/Sodium Chloride 250 mls @ 23.02 mls/hr 01/07/21 19:30 07/29/21 07:10 25,000 unit/ Sodium Chloride IV Not Given .[id number] [facility] Protocol 14.5 UNITS/KG/HR Lorazepam 0.5 mg 01/07/21 21:15 Lorazepam 2 Mg/Ml Inj IV Q6HR PRN Anxiety Naloxone HCl 0.2 mg 01/07/21 19:34 Naloxone 0.4 Mg/Ml 1 Ml Vial IV Q2M PRN Opioid Reversal Trazodone HCl 50 mg 01/07/21 21:16 Trazodone Hcl 50 Mg Tab PO HS PRN Insomnia Intake and Output 01/07/21 01/08/21 01/08/21 22:59 06:59 14:59 Intake Total 240 320 Output Total 450 Balance 240 -130 Intake: Intake, IV Titration 80 Amount Heparin Sod,Pork in 0.45% 80 NaCl 25,000 unit In 0.45 % NaCl 1 250ml.bag @ 14.5 UNITS/KG/HR 23.02 mls/hr IV .[id number] [facility] Rx#: [id number] Oral 240 240 Output: Urine 450 Other: Weight 158.757 kg 160 kg 01/07/21 17:08 01/07/21 17:08
--- NOTE | 2021-01-08 13:37 | P.GSCN ---
History of Present Illness Consult date: 01/08/21 Reason for Consult: Bilateral Pulmonary Embolism Requesting physician: Nadir Guardado History of present illness: He should has a 40-year-old white male who presented to the emergency department with complaints of left lower extremity swelling and pain. Patient states started over 2 weeks ago he was seen by his PCP and he was given some cream for his left lower extremity. Over the past few days the pain was becoming worse and he had also noticed some shortness of breath with exertion so he presented to the emergency department for further evaluation. His initial lab work showed an elevated d-dimer, troponins were negative. Patient underwent Doppler ultrasound of the left lower extremity which was positive for a DVT. He also underwent a CT angiogram of the chest that show numerous large emboli in the rig ht pulmonary artery and its branches. Left upper lobe pulmonary emboli. No evidence of right heart strain. He currently denies any chest pain, shortness of breath, abdominal pain, nausea or vomiting. He states he has no significant past medical history, he does have obstructive sleep apnea however does not use BiPAP. He is a nonsmoker, states he quit 2 years ago. Has had no previous history of DVT or pulmonary embolism. He denies any history of clotting disorder, recent travel, sedentary lifestyle, or any surgeries or injuries. He states he does not believe he has a family history of any clotting disorders, however his father did also have a DVT and PE but he believes that was related to surgery. Review of Systems 14 point review systems was completed all pertinent positives and negatives as stated in the HPI Past Medical History Past Medical History: Asthma Additional Past Medical History / Comment(s): compression fracture to back History of Any Multi-Drug Resistant Organisms: MRSA Year Discovered:: 2005 MDRO Source:: generalized Past Surgical History: Orthopedic Surgery Additional Past Surgical History / Comment(s): vasectomy. Past Psychological History: No Psychological Hx Reported Smoking Status: Former smoker Past Alcohol Use History: Occasional Past Drug Use History: Marijuana Medications and Allergies Home Medications Medication Instructions Recorded Confirmed Type Citalopram Hydrobromide [CeleXA] 40 mg PO HS 04/19/16 01/07/21 History Albuterol Sulfate [Proair Hfa] 1 - 2 puff INHALATION RT-Q6H PRN 01/07/21 01/07/21 History Cetirizine HCl [Zyrtec] 10 mg PO DAILY 01/07/21 01/07/21 History Diclofenac Sodium Gel [Voltaren 4 gm TOPICAL DAILY PRN 01/07/21 01/07/21 History Gel] Fluticasone/Salmeterol [Advair Hfa 2 puff INHALATION RT-BID 01/07/21 01/07/21 History 115-21 Mcg Inhaler] HYDROcodone/APAP 5-325MG [[place] 1 tab PO Q12H PRN 01/07/21 01/07/21 History 5-325] Ibuprofen [Motrin Ib] 600 mg PO Q8H PRN 01/07/21 01/07/21 History Meloxicam [Mobic] 15 mg PO DAILY 01/07/21 01/07/21 History Naproxen [Naprosyn] 500 mg PO BID PRN 01/07/21 01/07/21 History hydrOXYzine pamoate [Vistaril] 50 mg PO BID PRN 01/07/21 01/07/21 History methocarbamoL [Robaxin] 500 mg PO BID 01/07/21 01/07/21 History Allergies Allergy/AdvReac Type Severity Reaction Status Date / Time codeine AdvReac Nausea Verified 01/07/21 17:03 [From Tylenol-Codeine #3] ibuprofen [From Motrin] AdvReac Nausea & Verified 01/07/21 17:03 Vomiting & Diarrhea Surgical - Exam Vital Signs Temp Pulse Resp BP Pulse Ox 97.8 F 72 17 124/82 95 01/07/21 15:41 01/07/21 15:41 01/07/21 15:41 01/07/21 15:41 01/07/21 15:41 General appearance: The patient is alert, oriented, appears in no acute distress. Obese. HET: Head is normocephalic and atraumatic. Neck: Supple without lymphadenopathy. Trachea midline. Heart: S1 S2. Regular rate and rhythm. Lungs: Clear to auscultation.. Abdomen: Soft, nontender, nondistended. Extremities: Normal skin color and turgor. Left lower extremity with swelling, no redness. Radial and pedal pulses are 2/4 bilaterally. Neurological: No focal deficits. Strength and sensation are grossly intact. Results - Labs 01/08/21 06:53 01/07/21 17:08 Abnormal Lab Results - Last 24 Hours (Table) 01/07/21 01/07/21 01/08/21 Range/Units 17:08 17:08 00:27 WBC (3.8-10.6) k/uL Neutrophils # (1.3-7.7) k/uL APTT 47.3 H (22.0-30.0) sec D-Dimer 2.75 H (<0.60) mg/L FEU Glucose 124 H (74-99) mg/dL 01/08/21 Range/Units 06:53 WBC 12.1 H (3.8-10.6) k/uL Neutrophils # 9.3 H (1.3-7.7) k/uL APTT (22.0-30.0) sec D-Dimer (<0.60) mg/L FEU Glucose (74-99) mg/dL Diabetes panel 01/07/21 Range/Units 17:08 Sodium 139 (137-145) mmol/L Potassium 4.5 (3.5-5.1) mmol/L Chloride 107 (98-107) mmol/L Carbon Dioxide 24 (22-30) mmol/L BUN 13 (9-20) mg/dL Creatinine 0.81 (0.66-1.25) mg/dL Glucose 124 H (74-99) mg/dL Calcium 9.5 (8.4-10.2) mg/dL AST 23 (17-59) U/L ALT 24 (4-49) U/L Alkaline Phosphatase 76 (38-126) U/L Total Protein 7.3 (6.3-8.2) g/dL Albumin 4.4 (3.5-5.0) g/dL Calcium panel 01/07/21 Range/Units 17:08 Calcium 9.5 (8.4-10.2) mg/dL Albumin 4.4 (3.5-5.0) g/dL Pituitary panel 01/07/21 Range/Units 17:08 Sodium 139 (137-145) mmol/L Potassium 4.5 (3.5-5.1) mmol/L Chloride 107 (98-107) mmol/L Carbon Dioxide 24 (22-30) mmol/L BUN 13 (9-20) mg/dL Creatinine 0.81 (0.66-1.25) mg/dL Glucose 124 H (74-99) mg/dL Calcium 9.5 (8.4-10.2) mg/dL Adrenal panel 01/07/21 Range/Units 17:08 Sodium 139 (137-145) mmol/L Potassium 4.5 (3.5-5.1) mmol/L Chloride 107 (98-107) mmol/L Carbon Dioxide 24 (22-30) mmol/L BUN 13 (9-20) mg/dL Creatinine 0.81 (0.66-1.25) mg/dL Glucose 124 H (74-99) mg/dL Calcium 9.5 (8.4-10.2) mg/dL Total Bilirubin 0.3 (0.2-1.3) mg/dL AST 23 (17-59) U/L ALT 24 (4-49) U/L Alkaline Phosphatase 76 (38-126) U/L Total Protein 7.3 (6.3-8.2) g/dL Albumin 4.4 (3.5-5.0) g/dL - Imaging Comments: As reported in HPI Assessment and Plan Assessment: 1. Bilateral pulmonary emboli 2. Left lower extremity DVT 3. History of obstructive sleep apnea Plan: 1. May transition to oral anticoagulation 2. Echocardiogram reviewed with no evidence of right heart strain 3. Discussed with patient that we recommend outpatient follow-up with hematology 4. Patient is cleared for discharge from vascular surgery Thank you for this consultation and allowing us take part in the plan of care your patient during his hospital stay. The impression and plan of care has been dictated as directed. I performed a history and examination of this patient, discussed the same with the dictator. I agree with the dictator's note ,documented as a scribe. Any additional findings or plans will be noted.
[2021-01-08] MEDS ORDERED: APIXABAN 5 MG TAB PO SCH (15:03)
--- NOTE | 2021-01-08 22:58 | P.HPIM ---
History of Present Illness H&P Date: 01/08/21 Chief Complaint: L leg swelling Greg Lowery is a 40 yo M with PMh of asthma, tobacco and marijuana use, chronic back pain who presented to the ED with a 2-3 day history of LLE swelling and pain. He states he hit his left iverson on something a few days ago and after that had a hard tender lump. Yesterday his leg became acutely swollen so he came to the ED. On presentation vitals stable, d-dimer 2.75, labs otherwise unremarkable, US LLE for DVT with no definitive clot, CTA showing bilateral pulmonary emboli. Pt notes a family history of clotting disorder. Review of Systems All systems: negative Constitutional: Denies chills, Denies fever Eyes: denies blurred vision, denies pain Ears, nose, mouth and throat: Denies headache, Denies sore throat Cardiovascular: Denies chest pain, Denies shortness of breath Respiratory: Denies cough Gastrointestinal: Denies abdominal pain, Denies diarrhea, Denies nausea, Denies vomiting Musculoskeletal: Reports as per HPI, Reports muscle cramps, Denies myalgias Integumentary: Denies pruritus, Denies rash Neurological: Denies numbness, Denies weakness Psychiatric: Denies anxiety, Denies depression Endocrine: Denies fatigue, Denies weight change Past Medical History Past Medical History: Asthma Additional Past Medical History / Comment(s): compression fracture to back History of Any Multi-Drug Resistant Organisms: MRSA Date of last positivie culture/infection: 2005 MDRO Source:: generalized Past Surgical History: Orthopedic Surgery Additional Past Surgical History / Comment(s): vasectomy. Past Psychological History: No Psychological Hx Reported Smoking Status: Former smoker Past Alcohol Use History: Occasional Past Drug Use History: Marijuana Medications and Allergies Home Medications Medication Instructions Recorded Confirmed Type Citalopram Hydrobromide [CeleXA] 40 mg PO HS 04/19/16 01/07/21 History Albuterol Sulfate [Proair Hfa] 1 - 2 puff INHALATION RT-Q6H PRN 01/07/21 01/07/21 History Cetirizine HCl [Zyrtec] 10 mg PO DAILY 01/07/21 01/07/21 History Diclofenac Sodium Gel [Voltaren 4 gm TOPICAL DAILY PRN 01/07/21 01/07/21 History Gel] Fluticasone/Salmeterol [Advair Hfa 2 puff INHALATION RT-BID 01/07/21 01/07/21 History 115-21 Mcg Inhaler] HYDROcodone/APAP 5-325MG [[place] 1 tab PO Q12H PRN 01/07/21 01/07/21 History 5-325] Ibuprofen [Motrin Ib] 600 mg PO Q8H PRN 01/07/21 01/07/21 History Meloxicam [Mobic] 15 mg PO DAILY 01/07/21 01/07/21 History Naproxen [Naprosyn] 500 mg PO BID PRN 01/07/21 01/07/21 History hydrOXYzine pamoate [Vistaril] 50 mg PO BID PRN 01/07/21 01/07/21 History methocarbamoL [Robaxin] 500 mg PO BID 01/07/21 01/07/21 History Apixaban [Eliquis] 5 mg PO BID #60 tab 01/08/21 Rx Allergies Allergy/AdvReac Type Severity Reaction Status Date / Time codeine AdvReac Nausea Verified 01/07/21 17:03 [From Tylenol-Codeine #3] ibuprofen [From Motrin] AdvReac Nausea & Verified 01/07/21 17:03 Vomiting & Diarrhea Physical Exam Vitals: Vital Signs Temp Pulse Resp BP Pulse Ox 01/08/21 11:47 98.8 F 56 L 18 134/72 96 01/08/21 08:00 98.1 F 66 20 117/78 98 01/08/21 04:00 98.3 F 74 18 118/70 95 01/08/21 02:00 77 18 01/08/21 00:00 70 18 124/76 94 L Intake and Output 01/08/21 01/08/21 01/08/21 06:59 14:59 22:59 Intake Total 320 490 Output Total 450 Balance -130 490 Intake: Intake, IV Titration 80 250 Amount Heparin Sod,Pork in 0.45% 80 250 NaCl 25,000 unit In 0.45 % NaCl 1 250ml.bag @ 14.5 UNITS/KG/HR 23.02 mls/hr IV .[id number] [facility] Rx#: [id number] Oral 240 240 Output: Urine 450 Other: # Voids 1 Weight 160 kg General: well nourished, well developed, NAD. Vitals reviewed Eyes: PERRL, EOMI, conjunctiva normal HENT: normocephalic, mucus membranes moist Neck: supple, no JVD Lungs: normal respiratory effort, no wheezes or rales CV: Regular rate and rhythm, no murmur. Peripheral pulses 2+ Abdomen: soft, nondistended, no organomegaly Lymph: no cervical or axillary LAD Skin: warm and dry. Neuro: A&Ox3, normal mood and affect Results CBC & Chem 7: 01/08/21 06:53 01/07/21 17:08 Labs: Abnormal Lab Results - Last 24 Hours (Table) 01/08/21 01/08/21 01/08/21 Range/Units 00:27 06:53 08:44 WBC 12.1 H (3.8-10.6) k/uL Neutrophils # 9.3 H (1.3-7.7) k/uL APTT 47.3 H 42.4 H (22.0-30.0) sec Thrombosis Risk Factor Assmnt - Choose All That Apply Each Factor Represents 1 point: Medical pt on bed rest, Obesity (BMI >25) Other Risk Factors: Yes Each Risk Factor Represents 3 Points: History of DVT/PE Other congenital or acquired thrombophilia - If yes, enter type in comment: No Thrombosis Risk Factor Assessment Total Risk Factor Score: 5 Thrombosis Risk Factor Assessment Level: High Risk Assessment and Plan (1) Bilateral pulmonary embolism Status: Acute Code(s): I26.99 - OTHER PULMONARY EMBOLISM WITHOUT ACUTE COR PULMONALE SNOMED Code(s): 78240586 (2) Deep vein thrombosis (DVT) of lower extremity Status: Acute Code(s): I82.409 - ACUTE EMBOLISM AND THOMBOS UNSP DEEP VN UNSP LOWER EXTREMITY SNOMED Code(s): 103837821 (3) Elevated d-dimer Status: Acute Code(s): R79.89 - OTHER SPECIFIED ABNORMAL FINDINGS OF BLOOD CHEMISTRY SNOMED Code(s): 956473738 Plan: 1. Acute bilateral PE. Admit, start IV heparin. Consult cardiology and obtain echocardiogram to evaluate for RV strain. Plan to transition to oral anticoagulation. Check hypercoagulable panel with family history 2. chronic back pain. Continue with home BMP [employer]
--- NOTE | 2021-01-08 23:00 | P.DS ---
Providers Date of admission: 01/07/21 19:40 Expected date of discharge: 01/08/21 Attending physician: Nadir Guardado MD Consults: 01/07/21 19:34 Consult Physician Urgent Consulting Provider: Duglas Baez Consult Reason/Comments: Pulmonary embolism Do you want consulting provider notified?: Already Contacted Consult Physician Urgent Consulting Provider: Piter Shi Consult Reason/Comments: Pulmonary embolism Do you want consulting provider notified?: Already Contacted Primary care physician: Nadir Guardado MD - Discharge Diagnosis(es) (1) Bilateral pulmonary embolism Status: Acute (2) Deep vein thrombosis (DVT) of lower extremity Status: Acute (3) Elevated d-dimer Status: Acute Hospital Course: Greg Lowery is a 40 yo M with PMh of asthma, tobacco and marijuana use, chronic back pain who presented to the ED with a 2-3 day history of LLE swelling and pain. He states he hit his left iverson on something a few days ago and after that had a hard tender lump. Yesterday his leg became acutely swollen so he came to the ED. On presentation vitals stable, d-dimer 2.75, labs otherwise unremarkable, US LLE for DVT with no definitive clot, CTA showing bilateral pulmonary emboli. Pt notes a family history of clotting disorder. Pt admitted, seen by Cardiology. Underwent echo which showed normal RVSP. Transitioned to eliquis with hypercoagullabe workup pending. discharged in stable condition. Patient Condition at Discharge: Serious Plan - Discharge Summary Discharge Rx Participant: No New Discharge Prescriptions: New Apixaban [Eliquis] 5 mg PO BID #60 tab Continue Citalopram Hydrobromide [CeleXA] 40 mg PO HS HYDROcodone/APAP 5-325MG [[place] 5-325] 1 tab PO Q12H PRN PRN Reason: Pain Diclofenac Sodium Gel [Voltaren Gel] 4 gm TOPICAL DAILY PRN PRN Reason: Pain Cetirizine HCl [Zyrtec] 10 mg PO DAILY Naproxen [Naprosyn] 500 mg PO BID PRN PRN Reason: Pain methocarbamoL [Robaxin] 500 mg PO BID Fluticasone/Salmeterol [Advair Hfa 115-21 Mcg Inhaler] 2 puff INHALATION RT- BID hydrOXYzine pamoate [Vistaril] 50 mg PO BID PRN PRN Reason: Itching Meloxicam [Mobic] 15 mg PO DAILY Ibuprofen [Motrin Ib] 600 mg PO Q8H PRN PRN Reason: Pain Albuterol Sulfate [Proair Hfa] 1 - 2 puff INHALATION RT-Q6H PRN PRN Reason: Shortness Of Breath Discharge Medication List Citalopram Hydrobromide [CeleXA] 40 mg PO HS 04/19/16 [History] Albuterol Sulfate [Proair Hfa] 1 - 2 puff INHALATION RT-Q6H PRN 01/07/21 [History] Cetirizine HCl [Zyrtec] 10 mg PO DAILY 01/07/21 [History] Diclofenac Sodium Gel [Voltaren Gel] 4 gm TOPICAL DAILY PRN 01/07/21 [History] Fluticasone/Salmeterol [Advair Hfa 115-21 Mcg Inhaler] 2 puff INHALATION RT-BID 01/07/21 [History] HYDROcodone/APAP 5-325MG [[place] 5-325] 1 tab PO Q12H PRN 01/07/21 [History] Ibuprofen [Motrin Ib] 600 mg PO Q8H PRN 01/07/21 [History] Meloxicam [Mobic] 15 mg PO DAILY 01/07/21 [History] Naproxen [Naprosyn] 500 mg PO BID PRN 01/07/21 [History] hydrOXYzine pamoate [Vistaril] 50 mg PO BID PRN 01/07/21 [History] methocarbamoL [Robaxin] 500 mg PO BID 01/07/21 [History] Apixaban [Eliquis] 5 mg PO BID #60 tab 01/08/21 [Rx] Follow up Appointment(s)/Referral(s): Giancarlo Feldman MD [STAFF PHYSICIAN] - 1 Week Nadir Guardado MD [Primary Care Provider] - 01/14/21 2:30 pm [facility] [NON-STAFF] - 1 Week Patient Instructions/Handouts: Pulmonary Embolism (DC), Deep Vein Thrombosis (DC) Discharge Disposition: HOME SELF-CARE
[2021-01-09 09:28] LABS: Protein C (Activity) 84 % (71-138)
[2021-01-09 22:35] LABS: Cardiolipin Ab IgG Interp NEGATIVE (NEGATIVE)
== END 2021-01-08 16:54 | disposition home or self-care (01) ==
LOC: EC 15:27 → INTOOBSV 19:40 → 3SCARD 19:40 → UNDODISIN 01-08 16:54
PROVIDERS: ADMIT Family Medicine; ATTEND Family Medicine
DX: I82.402 Acute embolism and thrombosis of unspecified deep veins of left lower extremity (principal); I26.99 Other pulmonary embolism without acute cor pulmonale; G47.33 Obstructive sleep apnea (adult) (pediatric); J45.909 Unspecified asthma, uncomplicated; F41.9 Anxiety disorder, unspecified; G89.29 Other chronic pain; M54.9 Dorsalgia, unspecified; E66.9 Obesity, unspecified; Z68.41 Body mass index [BMI] 40.0-44.9, adult; Z20.822 Contact with and (suspected) exposure to COVID-19; Z79.1 Long term (current) use of non-steroidal anti-inflammatories (NSAID); Z79.51 Long term (current) use of inhaled steroids; Z79.899 Other long term (current) drug therapy; Z88.5 Allergy status to narcotic agent; Z88.6 Allergy status to analgesic agent; Z82.49 Family history of ischemic heart disease and other diseases of the circulatory system; Z86.14 Personal history of Methicillin resistant Staphylococcus aureus infection; Z87.81 Personal history of (healed) traumatic fracture; Z98.52 Vasectomy status; Z87.891 Personal history of nicotine dependence
CPT/HCPCS: 96376 ×2; 96366 ×2; 96365; 99285; 36415; 94640; 93005; 85303; 85306; 85379; 80053; 84484; 85025 ×2; 85610; 85730 ×2; 81241; 86147; 87635; 81240; 71046; 93971; 71275; G0378 ×2; C8929; J1644 ×3; J7512; Q9950; Q9967; 93306

== ENCOUNTER 2021-12-10 13:07 | Emergency (ER) | payer OTHER ==
--- NOTE | 2021-12-10 14:15 | ED ---
General Adult HPI - General Source: patient, RN notes reviewed Mode of arrival: ambulatory Limitations: no limitations <Des Smiley - Last Filed: 12/10/21 14:14> <Titus Espinal - Last Filed: 12/10/21 16:08> - General Stated complaint: Throat Swelling and Pain, Difficulty Breathing Time Seen by Provider: 12/10/21 14:01 - History of Present Illness Initial comments: This a 41-year-old male presents emergency Department with chief complaint of sore throat, difficulty swallowing, difficulty breathing. Patient states symptoms started last one to days. Patient's had hot and cold sensation no reported fever. Patient states the has multiple ALLERGIES, history of asthma. Patient has nausea vomiting diarrhea constipation or chest pain no headache no other associated complaints. (Des Smiley) - Related Data Home Medications Medication Instructions Recorded Confirmed Citalopram Hydrobromide [CeleXA] 40 mg PO HS 04/19/16 01/07/21 Albuterol Sulfate [Proair Hfa] 1 - 2 puff INHALATION RT-Q6H PRN 01/07/21 01/07/21 Cetirizine HCl [Zyrtec] 10 mg PO DAILY 01/07/21 01/07/21 Diclofenac Sodium Gel [Voltaren 4 gm TOPICAL DAILY PRN 01/07/21 01/07/21 Gel] Fluticasone Propion/Salmeterol 2 puff INHALATION RT-BID 01/07/21 01/07/21 [Advair Hfa 115-21 Mcg Inhaler] HYDROcodone/APAP 5-325MG [[place] 1 tab PO Q12H PRN 01/07/21 01/07/21 5-325] Ibuprofen [Motrin Ib] 600 mg PO Q8H PRN 01/07/21 01/07/21 Meloxicam [Mobic] 15 mg PO DAILY 01/07/21 01/07/21 Naproxen [Naprosyn] 500 mg PO BID PRN 01/07/21 01/07/21 hydrOXYzine pamoate [Vistaril] 50 mg PO BID PRN 01/07/21 01/07/21 methocarbamoL [Robaxin] 500 mg PO BID 01/07/21 01/07/21 Previous Rx's Medication Instructions Recorded Apixaban [Eliquis] 5 mg PO BID #60 tab 01/08/21 Azithromycin [Zithromax Z Pack] 1 tab PO DIRECTED #6 tab 12/10/21 methylPREDNISolone Dose Pack 4 mg PO DIRECTED #21 packet 12/10/21 [Medrol Dose Pack] Allergies Allergy/AdvReac Type Severity Reaction Status Date / Time codeine AdvReac Nausea Verified 12/10/21 14:10 [From Tylenol-Codeine #3] ibuprofen [From Motrin] AdvReac Nausea & Verified 12/10/21 14:10 Vomiting & Diarrhea Review of Systems ROS Other: All systems not noted in ROS Statement are negative. <Des Smiley - Last Filed: 12/10/21 14:14> ROS Other: All systems not noted in ROS Statement are negative. <Titus Espinal - Last Filed: 12/10/21 16:08> ROS Statement: Those systems with pertinent positive or pertinent negative responses have been documented in the HPI. Past Medical History Past Medical History: Asthma Additional Past Medical History / Comment(s): compression fracture to back History of Any Multi-Drug Resistant Organisms: MRSA Date of last positivie culture/infection: 2005 MDRO Source:: generalized Past Surgical History: Orthopedic Surgery Additional Past Surgical History / Comment(s): vasectomy. Past Psychological History: No Psychological Hx Reported Smoking Status: Former smoker Past Alcohol Use History: Occasional Past Drug Use History: Marijuana <Des Smiley - Last Filed: 12/10/21 14:14> General Exam General appearance: alert, in no apparent distress Head exam: Present: atraumatic, normocephalic, normal inspection Eye exam: Present: normal appearance, PERRL, EOMI. Absent: scleral icterus, conjunctival injection, periorbital swelling ENT exam: Present: mucous membranes moist, TM's normal bilaterally. Absent: normal exam, normal oropharynx (Mild erythema, exudates noted) Neck exam: Present: normal inspection, full ROM. Absent: tenderness, meningismus, lymphadenopathy Respiratory exam: Present: normal lung sounds bilaterally. Absent: respiratory distress, wheezes, rales, rhonchi, stridor Cardiovascular Exam: Present: regular rate, normal rhythm, normal heart sounds. Absent: systolic murmur, diastolic murmur, rubs, gallop, clicks <Des Smiley - Last Filed: 12/10/21 14:14> Course Vital Signs 12/10/21 14:10 Temperature 98.2 F Pulse Rate 72 Respiratory 20 Rate Blood Pressure 126/68 O2 Sat by Pulse 96 Oximetry Medical Decision Making <Titus Espinal - Last Filed: 12/10/21 16:08> - Medical Decision Making 41-year-old male with, nasal congestion, sore throat. Patient well-appearing with stable vitals. I did perform chest x-ray as well as soft tissue neck which were unremarkable. Rapid strep is negative. Patient will be started on a Medrol Dosepak as well as azithromycin. He should follow with his primary care physician. (Titus Espinal) - Lab Data Lab Results 12/10/21 Range/Units 14:16 Group A Strep Rapid Negative (Negative) Disposition <Des Smiley - Last Filed: 12/10/21 14:14> Is patient prescribed a controlled substance at d/c from ED?: No Time of Disposition: 16:06 <Titus Espinal - Last Filed: 12/10/21 16:08> Clinical Impression: Sore throat Disposition: HOME SELF-CARE Condition: Good Instructions (If sedation given, give patient instructions): Pharyngitis (ED) Prescriptions: methylPREDNISolone Dose Pack [Medrol Dose Pack] 4 mg PO DIRECTED #21 packet Azithromycin [Zithromax Z Pack] 1 tab PO DIRECTED #6 tab Referrals: Nadir Guardado MD [Primary Care Provider] - 1-2 days
[2021-12-10 14:16] VITALS: RESP 20
--- NOTE | 2021-12-10 15:09 | XR ---
EXAMINATION TYPE: XR chest 2V DATE OF EXAM: 12/10/2021 COMPARISON: 01/07/2021 HISTORY: Chest pain TECHNIQUE: Frontal and lateral views of the chest are obtained. FINDINGS: There is no focal air space opacity. No evidence for pneumothorax. No pleural effusion. The cardiac silhouette size is within normal limits. The osseous structures are grossly intact. IMPRESSION: 1. No acute cardiopulmonary process.
--- NOTE | 2021-12-10 15:12 | XR ---
EXAMINATION TYPE: XR soft tissue neck DATE OF EXAM: 12/10/2021 COMPARISON: NONE HISTORY: Difficulty in breathing TECHNIQUE: 2 views of the soft tissues of the neck are submitted. FINDINGS: The airway is patent. Normal appearing epiglottis. Retropharyngeal soft tissues are withi n normal limits. No evidence for radiopaque foreign body. IMPRESSION: Negative study
[2021-12-10 16:21] VITALS: BP 121/82; PULSE 78; TEMP 97.3
== END 2021-12-10 16:21 | disposition home or self-care (01) ==
LOC: EC 13:07
DX: R07.0 Pain in throat (principal); J45.909 Unspecified asthma, uncomplicated; Z87.891 Personal history of nicotine dependence; Z88.5 Allergy status to narcotic agent; Z88.6 Allergy status to analgesic agent; Z79.51 Long term (current) use of inhaled steroids
CPT/HCPCS: 70360; 71046; 87081; 87430; 99283

== ENCOUNTER 2022-10-02 16:53 | Emergency (ER) | payer OTHER ==
[2022-10-02 17:30] LABS: Basophils # (A) 0.1 k/uL (0-0.2); Basophils % (A) 1 %; Eosinophils # (A) 0.2 k/uL (0-0.7); Eosinophils % (A) 2 %; HCT 48.8 % (39.0-53.0); HGB 16.8 gm/dL (13.0-17.5); Lymphocytes # (A) 1.9 k/uL (1.0-4.8); Lymphocytes % (A) 25 %; MCH 30.7 pg (25.0-35.0); MCHC 34.5 g/dL (31.0-37.0); MCV 89.1 fL (80.0-100.0); Mean Platelet Volume 8.1; Monocytes # (A) 0.5 k/uL (0-1.0); Monocytes % (A) 7 %; Neutrophils # (A) 4.8 k/uL (1.3-7.7); Neutrophils % (A) 63 %; Platelet Count 303 k/uL (150-450); RBC 5.47 m/uL (4.30-5.90); RDW 13.6 % (11.5-15.5); WBC 7.5 k/uL (3.8-10.6)
--- NOTE | 2022-10-02 17:36 | XR ---
EXAMINATION TYPE: XR chest 2V DATE OF EXAM: 10/02/2022 COMPARISON: 11/13/2021 HISTORY: Chest pain TECHNIQUE: Frontal and lateral views of the chest are obtained. FINDINGS: There is no focal air space opacity. No evidence for pneumothorax. No pleural effusion. The cardiac silhouette size is within normal limits. The osseous structures are grossly intact. IMPRESSION: 1. No acute cardiopulmonary process.
[2022-10-02 17:55] LABS: ALT 26 U/L (4-49); African American GFR (CKD) >90 (>60 ml/min/1.73 sqM); Albumin 4.3 g/dL (3.5-5.0); Alkaline Phosphatase 64 U/L (38-126); Anion Gap 8 mmol/L; Calcium 9.6 mg/dL (8.4-10.2); Carbon Dioxide 25 mmol/L (22-30); Chloride 105 mmol/L (98-107); Non-African American GFR(CKD) >90 (>60 ml/min/1.73 sqM); Potassium 4.8 mmol/L (3.5-5.1); Sodium 138 mmol/L (137-145); Total Protein 7.4 g/dL (6.3-8.2)
[2022-10-02 17:58] LABS: AST 23 U/L (17-59); Blood Urea Nitrogen 14 mg/dL (9-20); Glucose 110 mg/dL (74-99); Total Bilirubin 0.4 mg/dL (0.2-1.3)
--- NOTE | 2022-10-02 18:04 | ED ---
General Adult HPI - General Chief complaint: Shortness of Breath Stated complaint: Back pain Time Seen by Provider: 10/02/22 17:01 Source: patient, RN notes reviewed Mode of arrival: ambulatory Limitations: no limitations - History of Present Illness Initial comments: 42-year-old male with no significant past medical history presents to the emergency department with a chief complaint of urinary retention. Patient reports that he has not had a true full urinary void in 2 days. He reports that he has been able to have some slight trouble. He reports that he has seen blood in his urine. He is reporting coming symptoms of chills, flank pain and dysuria. He denies any known fevers, nausea, vomiting. He denies history of kidney stones. He reports that he quit tobacco product use approximately 1 month ago. - Related Data Home Medications Medication Instructions Recorded Confirmed Citalopram Hydrobromide [CeleXA] 40 mg PO HS 04/19/16 01/07/21 Albuterol Sulfate [Proair Hfa] 1 - 2 puff INHALATION RT-Q6H PRN 01/07/21 01/07/21 Cetirizine HCl [Zyrtec] 10 mg PO DAILY 01/07/21 01/07/21 Diclofenac Sodium Gel [Voltaren 4 gm TOPICAL DAILY PRN 01/07/21 01/07/21 Gel] Fluticasone Propion/Salmeterol 2 puff INHALATION RT-BID 01/07/21 01/07/21 [Advair Hfa 115-21 Mcg Inhaler] HYDROcodone/APAP 5-325MG [[place] 1 tab PO Q12H PRN 01/07/21 01/07/21 5-325] Ibuprofen [Motrin Ib] 600 mg PO Q8H PRN 01/07/21 01/07/21 Meloxicam [Mobic] 15 mg PO DAILY 01/07/21 01/07/21 Naproxen [Naprosyn] 500 mg PO BID PRN 01/07/21 01/07/21 hydrOXYzine pamoate [Vistaril] 50 mg PO BID PRN 01/07/21 01/07/21 methocarbamoL [Robaxin] 500 mg PO BID 01/07/21 01/07/21 Previous Rx's Medication Instructions Recorded Apixaban [Eliquis] 5 mg PO BID #60 tab 01/08/21 Azithromycin [Zithromax Z Pack] 1 tab PO DIRECTED #6 tab 12/10/21 methylPREDNISolone Dose Pack 4 mg PO DIRECTED #21 packet 12/10/21 [Medrol Dose Pack] HYDROcodone/APAP 5-325MG [[place] 5] 1 each PO Q6HR PRN #12 tab 10/02/22 Allergies Allergy/AdvReac Type Severity Reaction Status Date / Time codeine AdvReac Nausea Verified 12/10/21 14:10 [From Tylenol-Codeine #3] ibuprofen [From Motrin] AdvReac Nausea & Verified 12/10/21 14:10 Vomiting & Diarrhea Review of Systems ROS Statement: Those systems with pertinent positive or pertinent negative responses have been documented in the HPI. ROS Other: All systems not noted in ROS Statement are negative. Past Medical History Past Medical History: Asthma, Pulmonary Embolus (PE) Additional Past Medical History / Comment(s): compression fracture to back. dvt History of Any Multi-Drug Resistant Organisms: MRSA Date of last positivie culture/infection: 2005 MDRO Source:: generalized Past Surgical History: Orthopedic Surgery Additional Past Surgical History / Comment(s): vasectomy. Past Psychological History: No Psychological Hx Reported Smoking Status: Former smoker Past Alcohol Use History: Occasional Past Drug Use History: Marijuana General Exam Limitations: no limitations General appearance: alert, in no apparent distress Head exam: Present: atraumatic, normocephalic, normal inspection Eye exam: Present: normal appearance, PERRL, EOMI. Absent: scleral icterus, conjunctival injection, periorbital swelling ENT exam: Present: normal exam, mucous membranes moist Neck exam: Present: normal inspection. Absent: tenderness, meningismus, lymphadenopathy Respiratory exam: Present: normal lung sounds bilaterally. Absent: respiratory distress, wheezes, rales, rhonchi, stridor Cardiovascular Exam: Present: regular rate, normal rhythm, normal heart sounds. Absent: systolic murmur, diastolic murmur, rubs, gallop, clicks GI/Abdominal exam: Present: soft, normal bowel sounds. Absent: distended, tenderness, guarding, rebound, rigid Extremities exam: Present: normal inspection, full ROM, normal capillary refill. Absent: tenderness, pedal edema, joint swelling, calf tenderness Back exam: Present: normal inspection Neurological exam: Present: alert, oriented X3, CN II-XII intact Psychiatric exam: Present: normal affect, normal mood Skin exam: Present: warm, dry, intact, normal color. Absent: rash Course Vital Signs 10/02/22 10/02/22 10/02/22 16:56 17:18 19:00 Temperature 98.2 F 97.6 F Pulse Rate 100 89 Respiratory 20 18 17 Rate Blood Pressure 125/88 123/84 O2 Sat by Pulse 95 99 Oximetry EKG Findings - EKG Comments: EKG Findings:: I interpreted the following EKG performed at 17:52. Rate 80 bpm and sinus rhythm. NC interval 179, QRS duration 108, QT/QTc 300/336 Medical Decision Making - Medical Decision Making Was pt. sent in by a medical professional or institution (, PA, CELL TENDER HELPER, urgent care, hospital, or fdc...) When possible be specific @ -[No] Did you speak to anyone other than the patient for history (EMS, parent, family, police, friend...)? What history was obtained from this source @ -[No] Did you review nursing and triage notes (agree or disagree)? Why? @ -[I reviewed and agree with nursing and triage notes] Were old charts reviewed (outside hosp., previous admission, EMS record, old EK G, old radiological studies, urgent care reports/EKG's, fdc records)? Report findings @ -[No old charts were reviewed] Differential Diagnosis (chest pain, altered mental status, abdominal pain women, abdominal pain men, vaginal bleeding, weakness, fever, dyspnea, syncope, headache, dizziness, GI bleed, back pain, seizure, CVA, palpatations, mental he alth, musculoskeletal)? @ -[not applicable] EKG interpreted by me (3pts min.). @ -[As above] X-rays interpreted by me (1pt min.). @ -Chest x-ray negative for any evidence of acute intrapleural process or consolidation CT interpreted by me (1pt min.). @ -[None done] U/S interpreted by me (1pt. min.). @ -Bilateral Doppler ultrasounds of bilateral lower extremities is negative for any evidence of acute DVT What testing was considered but not performed or refused? (CT, X-rays, U/S, labs)? Why? @ -[None] What meds were considered but not given or refused? Why? @ -[None] Did you discuss the management of the patient with other professionals (professionals i.e. , PA, CELL TENDER HELPER, lab, RT, psych nurse, director social, premium representative, teacher, duty officer, rehabilitation case coordinator)? Give summary @ -[No] Was smoking cessation discussed for >3mins.? @ -[No] Was critical care preformed (if so, how long)? @ -[No] Were there social determinants of health that impacted care today? How? (Homelessness, low income, unemployed, alcoholism, drug addiction, transportation, low edu. Level, literacy, decrease access to med. care, half-way, rehab)? @ -[No] Was there de-escalation of care discussed even if they declined (Discuss DNR or withdrawal of care, Hospice)? DNR status @ -[No] What co-morbidities impacted this encounter? (DM, HTN, Smoking, COPD, CAD, Cancer, CVA, ARF, Chemo, Hep., AIDS, mental health diagnosis, sleep apnea, morbid obesity)? @ -[None] Was patient admitted / discharged? Hospital course, mention meds given and r oute, prescriptions, significant lab abnormalities, going to OR and other pertinent info. @ -Discharged. This is a 42-year-old male who presents the emergency department with shortness of breath. Patient had a thorough history and physical exam performed physical exam essentially unremarkable. Heart rate regular rate and rhythm, lungs clear to auscultation bilaterally abdomen is soft and nontender. Her left lower extremity is without market edema or erythema. 2 + DT/PT pulses, distal NVI remains intact. Patient had a ultrasound Doppler which was negative for any evidence of DVT. I discussed the results in detail with the patient verbalized understanding and all questions were addressed. Return precautions were discussed at length. Patient was discharged in stable condition. She was encouraged to follow up with her PCP in 1-2 days. Comes with ANNE Gonzalez who agrees with plan of care Undiagnosed new problem with uncertain prognosis? @ -[No] Drug Therapy requiring intensive monitoring for toxicity (Heparin, Nitro, Insulin, Cardizem)? @ -[No] Were any procedures done? @ -[No] Diagnosis/symptom? @ -shortness of breath Acute, or Chronic, or Acute on Chronic? @ -acute Uncomplicated (without systemic symptoms) or Complicated (systemic symptoms)? @ -uncomplicated Side effects of treatment? @ -[No] Exacerbation, Progression, or Severe Exacerbation? @ -[No] Poses a threat to life or bodily function? How? (Chest pain, [place], [place], pneumonia, PE, COPD, DKA, ARF, appy, cholecystitis, CVA, Diverticulitis, Homicidal, Suicidal, threat to staff... and all critical care pts) @ -low likelihood - Lab Data Result diagrams: 10/02/22 17:19 10/02/22 17:19 Lab Results 10/02/22 10/02/22 10/02/22 Range/Units 17:19 17:19 17:19 WBC 7.5 (3.8-10.6) k/uL RBC 5.47 (4.30-5.90) m/uL Hgb 16.8 (13.0-17.5) gm/dL Hct 48.8 (39.0-53.0) % MCV 89.1 (80.0-100.0) fL MCH 30.7 (25.0-35.0) pg MCHC 34.5 (31.0-37.0) g/dL RDW 13.6 (11.5-15.5) % Plt Count 303 (150-450) k/uL MPV 8.1 Neutrophils % 63 % Lymphocytes % 25 % Monocytes % 7 % Eosinophils % 2 % Basophils % 1 % Neutrophils # 4.8 (1.3-7.7) k/uL Lymphocytes # 1.9 (1.0-4.8) k/uL Monocytes # 0.5 (0-1.0) k/uL Eosinophils # 0.2 (0-0.7) k/uL Basophils # 0.1 (0-0.2) k/uL PT (9.0-12.0) sec INR (<1.2) APTT (22.0-30.0) sec D-Dimer 0.19 (<0.60) mg/L FEU Sodium 138 (137-145) mmol/L Potassium 4.8 (3.5-5.1) mmol/L Chloride 105 (98-107) mmol/L Carbon Dioxide 25 (22-30) mmol/L Anion Gap 8 mmol/L BUN 14 (9-20) mg/dL Creatinine 0.78 (0.66-1.25) mg/dL Est GFR (CKD-EPI)AfAm >90 (>60 ml/min/1.73 sqM) Est GFR (CKD-EPI)NonAf >90 (>60 ml/min/1.73 sqM) Glucose 110 H (74-99) mg/dL Calcium 9.6 (8.4-10.2) mg/dL Magnesium (1.6-2.3) mg/dL Total Bilirubin 0.4 (0.2-1.3) mg/dL AST 23 (17-59) U/L ALT 26 (4-49) U/L Alkaline Phosphatase 64 (38-126) U/L Troponin I (0.000-0.034) ng/mL Total Protein 7.4 (6.3-8.2) g/dL Albumin 4.3 (3.5-5.0) g/dL 10/02/22 10/02/22 10/02/22 Range/Units 17:19 17:19 17:21 WBC (3.8-10.6) k/uL RBC (4.30-5.90) m/uL Hgb (13.0-17.5) gm/dL Hct (39.0-53.0) % MCV (80.0-100.0) fL MCH (25.0-35.0) pg MCHC (31.0-37.0) g/dL RDW (11.5-15.5) % Plt Count (150-450) k/uL MPV Neutrophils % % Lymphocytes % % Monocytes % % Eosinophils % % Basophils % % Neutrophils # (1.3-7.7) k/uL Lymphocytes # (1.0-4.8) k/uL Monocytes # (0-1.0) k/uL Eosinophils # (0-0.7) k/uL Basophils # (0-0.2) k/uL PT 9.7 (9.0-12.0) sec INR 0.9 (<1.2) APTT 23.6 (22.0-30.0) sec D-Dimer (<0.60) mg/L FEU Sodium (137-145) mmol/L Potassium (3.5-5.1) mmol/L Chloride (98-107) mmol/L Carbon Dioxide (22-30) mmol/L Anion Gap mmol/L BUN (9-20) mg/dL Creatinine (0.66-1.25) mg/dL Est GFR (CKD-EPI)AfAm (>60 ml/min/1.73 sqM) Est GFR (CKD-EPI)NonAf (>60 ml/min/1.73 sqM) Glucose (74-99) mg/dL Calcium (8.4-10.2) mg/dL Magnesium 1.9 (1.6-2.3) mg/dL Total Bilirubin (0.2-1.3) mg/dL AST (17-59) U/L ALT (4-49) U/L Alkaline Phosphatase (38-126) U/L Troponin I <0.012 (0.000-0.034) ng/mL Total Protein (6.3-8.2) g/dL Albumin (3.5-5.0) g/dL Disposition Clinical Impression: Leg pain, Back pain Disposition: HOME SELF-CARE Condition: Stable Prescriptions: HYDROcodone/APAP 5-325MG [[place] 5] 1 each PO Q6HR PRN #12 tab PRN Reason: Pain Is patient prescribed a controlled substance at d/c from ED?: Yes When asked, does pt state using other controlled substances?: No If prescribed controlled substance>3 days was MAPS reviewed?: Prescribed <3 Days Referrals: None,Stated [Primary Care Provider] - 1-2 days Time of Disposition: 19:28
[2022-10-02] MEDS ORDERED: HYDROcodone/APAP 5-325MG 1 EACH TAB PO STA (18:44)
--- NOTE | 2022-10-02 18:50 | US ---
EXAMINATION TYPE: US venous doppler duplex [facility] DATE OF EXAM: 10/02/2022 6:36 PM COMPARISON: Lower extremity venous duplex 01/07/2021 CLINICAL INDICATION: Male, 42 years old with history of pain; Patient states having a history of DVT with PE. No redness. No swelling. No injury. Not on blood thinners. Patient states legs ache and has restless legs. SIDE PERFORMED: Bilateral TECHNIQUE: The lower extremity deep venous system is examined utilizing real time linear array sonog luz elena with graded compression, doppler sonography and color-flow sonography. VESSELS IMAGED: Common Femoral Vein Deep Femoral Vein Greater Saphenous Vein * Femoral Vein Popliteal Vein Small Saphenous Vein * Proximal Calf Veins (* superficial vessels) Right Leg: Negative for DVT Left Leg: Negative for DVT IMPRESSION: No evidence for deep vein thrombosis bilaterally.
[2022-10-02 18:59] VITALS: BP 123/84; PULSE 89; RESP 17; TEMP 97.6
[2022-10-02 19:07] LABS: INR 0.9 (<1.2); Partial Thromboplastin Time 23.6 sec (22.0-30.0); Prothrombin Time 9.7 sec (9.0-12.0)
== END 2022-10-02 19:39 | disposition home or self-care (01) ==
LOC: EC 16:53
DX: M79.606 Pain in leg, unspecified (principal); M54.9 Dorsalgia, unspecified; J45.909 Unspecified asthma, uncomplicated; Z86.711 Personal history of pulmonary embolism; Z87.891 Personal history of nicotine dependence; Z79.899 Other long term (current) drug therapy; Z79.51 Long term (current) use of inhaled steroids; Z79.01 Long term (current) use of anticoagulants; Z88.5 Allergy status to narcotic agent; Z88.6 Allergy status to analgesic agent
CPT/HCPCS: 36415; 71046; 80053; 83735; 84484; 85025; 85379; 85610; 85730; 93005; 93970; 99285

== ENCOUNTER 2022-11-04 14:03 | Emergency (ER) | payer OTHER ==
[2022-11-04 14:33] VITALS: PULSE 75
[2022-11-04] MEDS ORDERED: HYDROcodone/APAP 5-325MG 1 EACH TAB PO STA (14:49)
--- NOTE | 2022-11-04 14:54 | ED ---
Extremity Problem HPI - General Chief complaint: Extremity Problem,Nontraumatic Stated complaint: rt knee swelling Time Seen by Provider: 11/04/22 14:35 Source: patient, family, RN notes reviewed Mode of arrival: wheelchair Limitations: no limitations - History of Present Illness Initial comments: This is a 42-year-old male who presents to the emergency department for right leg pain and swelling. Patient states that this started 2-3 days ago. The pain and swelling are primarily around the right knee. Denies any known injuries. He does have a history of blood clots, but states that the pain feels different. He has not noticed any redness, however he felt like it may have been warm last night. States that whenever he tries to stand, the pain becomes much worse and the swelling increases as well. Denies any chest pain or shortness of breath. He has not been taking anything to treat his pain. Denies any fevers, chills, sore throat, cough, dyspnea, chest pain, palpitations, abdominal pain, nausea, vomiting, diarrhea, back pain, or headaches. MD Complaint: extremity pain, extremity swelling Onset/Timin -: days(s) Location: right, lower extremity - Related Data Home Medications Medication Instructions Recorded Confirmed Citalopram Hydrobromide [CeleXA] 40 mg PO HS 04/19/16 01/07/21 Albuterol Sulfate [Proair Hfa] 1 - 2 puff INHALATION RT-Q6H PRN 01/07/21 01/07/21 Cetirizine HCl [Zyrtec] 10 mg PO DAILY 01/07/21 01/07/21 Diclofenac Sodium Gel [Voltaren 4 gm TOPICAL DAILY PRN 01/07/21 01/07/21 Gel] Fluticasone Propion/Salmeterol 2 puff INHALATION RT-BID 01/07/21 01/07/21 [Advair Hfa 115-21 Mcg Inhaler] HYDROcodone/APAP 5-325MG [[place] 1 tab PO Q12H PRN 01/07/21 01/07/21 5-325] Ibuprofen [Motrin Ib] 600 mg PO Q8H PRN 01/07/21 01/07/21 Meloxicam [Mobic] 15 mg PO DAILY 01/07/21 01/07/21 Naproxen [Naprosyn] 500 mg PO BID PRN 01/07/21 01/07/21 hydrOXYzine pamoate [Vistaril] 50 mg PO BID PRN 01/07/21 01/07/21 methocarbamoL [Robaxin] 500 mg PO BID 01/07/21 01/07/21 Previous Rx's Medication Instructions Recorded Apixaban [Eliquis] 5 mg PO BID #60 tab 01/08/21 Azithromycin [Zithromax Z Pack] 1 tab PO DIRECTED #6 tab 12/10/21 methylPREDNISolone Dose Pack 4 mg PO DIRECTED #21 packet 12/10/21 [Medrol Dose Pack] HYDROcodone/APAP 5-325MG [[place] 5] 1 each PO Q6HR PRN #12 tab 10/02/22 HYDROcodone/APAP 5-325MG [[place] 1 tab PO Q6HR PRN 3 Days #12 tab 11/04/22 5-325] Allergies Allergy/AdvReac Type Severity Reaction Status Date / Time codeine AdvReac Nausea Verified 11/04/22 14:33 [From Tylenol-Codeine #3] ibuprofen [From Motrin] AdvReac Nausea & Verified 11/04/22 14:33 Vomiting & Diarrhea Review of Systems ROS Statement: Those systems with pertinent positive or pertinent negative responses have been documented in the HPI. ROS Other: All systems not noted in ROS Statement are negative. Past Medical History Past Medical History: Asthma, Pulmonary Embolus (PE) Additional Past Medical History / Comment(s): compression fracture to back. dvt History of Any Multi-Drug Resistant Organisms: MRSA Date of last positivie culture/infection: 2005 MDRO Source:: generalized Past Surgical History: Orthopedic Surgery Additional Past Surgical History / Comment(s): vasectomy. Past Psychological History: No Psychological Hx Reported Smoking Status: Former smoker Past Alcohol Use History: Occasional Past Drug Use History: Marijuana General Exam Limitations: no limitations General appearance: alert, in no apparent distress Head exam: Present: atraumatic, normocephalic, normal inspection Respiratory exam: Present: normal lung sounds bilaterally. Absent: respiratory distress, wheezes, rales, rhonchi, stridor Cardiovascular Exam: Present: regular rate, normal rhythm, normal heart sounds. Absent: systolic murmur, diastolic murmur, rubs, gallop, clicks Extremities exam: Present: other (Minor tenderness and swelling over the right patella. Multiple varicose veins. No calf tenderness. No overlying erythema or increased heat. 2+ DP and TP pulses.) Neurological exam: Present: alert, oriented X3, CN II-XII intact Psychiatric exam: Present: normal affect, normal mood Course Vital Signs 11/04/22 11/04/22 14:23 16:28 Temperature 98.7 F 98.3 F Pulse Rate 75 75 Respiratory 20 18 Rate Blood Pressure 135/92 138/85 O2 Sat by Pulse 94 L 98 Oximetry Medical Decision Making - Medical Decision Making This is a 42-year-old male who presents to the emergency department for right leg pain and swelling. Was pt. sent in by a medical professional or institution? @ -No Did you speak to anyone other than the patient for history? @ -No Did you review nursing and triage notes? @ -Yes, and I agree, it is accurate with regards to the patient's symptoms. Were old charts reviewed? @ -No Differential Diagnosis? @ -Differential Leg Pain/Swelling: Leg fracture, leg sprain, DVT, PVD, arterial insufficiency, iliac artery aneurysm, cellulitis, compartment syndrome, tendinopathy, nerve entrapment, piriformis syndrome, osteoarthritis, rhabdomyolysis, myositis, cramping from an electrolyte imbalance, this is not meant to be an all inclusive list. EKG interpreted by me (3pts min.)? @ -Not obtained X-rays interpreted by me (1pt min.)? @ -X-ray of the right knee obtained. My interpretation identifies no acute fractures. CT interpreted by me (1pt min.)? @ -Not obtained U/S interpreted by me (1pt. min.)? @ -Duplex ultrasound of the right lower extremity obtained. My interpretation identifies no evidence of a DVT. What testing was considered but not performed? (CT, X-rays, U/S, labs)? Why? @ -None What meds were considered but not given? Why? @ -None Did you discuss the management of the patient with other professionals? @ -No Did you reconcile home meds? @ -No Was smoking cessation discussed for >3mins.? @ -No Was critical care preformed (if so, how long)? @ -No Were there social determinants of health that impacted care today? How? (Homelessness, low income, unemployed, alcoholism, drug addiction, transportation, low edu. Level, literacy, decrease access to med. care, long-term, rehab)? @ -No Was there de-escalation of care discussed even if they declined? (Discuss DNR or withdrawal of care, Hospice)? @ -No What co-morbidities impacted this encounter? (DM, HTN, Smoking, COPD, CAD, Cancer, CVA, Hep., AIDS, mental health diagnosis, sleep apnea, morbid obesity)? @ -Morbid obesity, hx of DVT/PE Was patient admitted / discharged? @ -Discharged. X-ray of the right knee and duplex ultrasound of the right lower extremity obtained revealing no acute findings. Discussed with the patient that this is likely a muscular issue. He is already taking Mobic daily, which he will continue to do. Rx for 3 day course of [place] provided with dosing instructions reviewed. He is reminded to take this sparingly when his pain is the most severe and was also reminded that it may be sedating. Knee immobilizer provided as well to be used as needed. He is advised to apply ice for 15-20 minutes every 2-3 hours and keep leg elevated as well. Undiagnosed new problem with uncertain prognosis? @ -None Drug Therapy requiring intensive monitoring for toxicity (Heparin, Nitro, Insulin, Cardizem)? @ -None Were any procedures done? @ -None Diagnosis/symptom? @ -Right knee pain and swelling Acute, or Chronic, or Acute on Chronic? @ -Acute Uncomplicated (without systemic symptoms) or Complicated (systemic symptoms)? @ -Uncomplicated Side effects of treatment? @ -None Exacerbation, Progression, or Severe Exacerbation] @ -Not applicable Poses a threat to life or bodily function? @ -No Return precautions reviewed in depth, the patient is instructed to return to the emergency department with any new, worsening, or concerning symptoms. Patient verbalized understanding. This case was discussed in detail with the attending ED physician, Dr. Blanca. Presentation, findings, and treatment plan discussed in detail as well. - Radiology Data Radiology results: report reviewed, image reviewed Disposition Clinical Impression: Pain and swelling of right knee Disposition: HOME SELF-CARE Instructions (If sedation given, give patient instructions): Swollen Knee Joint (ED), Knee Pain (ED) Additional Instructions: Return to the emergency department with any new, worsening, or concerning symptoms. Take the [place] sparingly when your pain is the most severe. Use the knee immobilizer as needed. Follow up with your primary care provider in 1-2 days. Prescriptions: HYDROcodone/APAP 5-325MG [[place] 5-325] 1 tab PO Q6HR PRN 3 Days #12 tab PRN Reason: Pain Is patient prescribed a controlled substance at d/c from ED?: Yes When asked, does pt state using other controlled substances?: No If prescribed controlled substance>3 days was MAPS reviewed?: Prescribed <3 Days Referrals: Greg Justin DO [Primary Care Provider] - 1-2 days
--- NOTE | 2022-11-04 15:29 | XR ---
EXAMINATION TYPE: XR knee complete RT DATE OF EXAM: 11/04/2022 CLINICAL HISTORY: Swelling and pain. TECHNIQUE: Three views of the right knee are obtained. COMPARISON: None. FINDINGS: There is no acute fracture/dislocation evident in right knee. Mild to moderate narrowing a nd mild spurring of femoral compartment. [id number] narrowing medial tibiofemoral compartment. Occasional small round bony density or phleboliths seen in the overlying soft tissue. IMPRESSION: As above.
--- NOTE | 2022-11-04 16:12 | US ---
EXAMINATION TYPE: US venous doppler duplex LE RT DATE OF EXAM: 11/04/2022 3:50 PM COMPARISON: CLINICAL INDICATION: Male, 42 years old with history of Right knee swelling; Right anterior knee swel ling. No on blood thinners. No redness or leg swelling. Portable EC patient SIDE PERFORMED: Right TECHNIQUE: The lower extremity deep venous system is examined utilizing real time linear array sonog luz elena with graded compression, doppler sonography and color-flow sonography. VESSELS IMAGED: Common Femoral Vein Deep Femoral Vein Greater Saphenous Vein * Femoral Vein Popliteal Vein Small Saphenous Vein * Proximal Calf Veins Posterior tibial veins (* superficial vessels) Right Leg: Negative for DVT IMPRESSION: No evidence for DVT within the right lower extremity.
[2022-11-04 16:29] VITALS: BP 138/85; RESP 18; TEMP 98.3
== END 2022-11-04 16:29 | disposition home or self-care (01) ==
LOC: EC 14:03
DX: M79.604 Pain in right leg (principal); J45.909 Unspecified asthma, uncomplicated; F12.90 Cannabis use, unspecified, uncomplicated; Z86.711 Personal history of pulmonary embolism; Z87.891 Personal history of nicotine dependence; Z79.51 Long term (current) use of inhaled steroids; Z79.01 Long term (current) use of anticoagulants; Z79.899 Other long term (current) drug therapy; Z88.5 Allergy status to narcotic agent; Z88.6 Allergy status to analgesic agent
CPT/HCPCS: 73562; 93971; 99284; L1830

== ENCOUNTER 2023-07-30 14:14 | Emergency (ER) | payer OTHER ==
[2023-07-30 14:42] VITALS: TEMP 97.4
--- NOTE | 2023-07-30 16:09 | ED ---
Back Pain [facility] - General Chief Complaint: Back Pain/Injury Stated Complaint: back pain Time Seen by Provider: 07/30/23 15:38 Source: patient, RN notes reviewed, old records reviewed Limitations: no limitations - History of Present Illness Initial Comments: This is a 43-year-old male to ER for evaluation of back pain. Acute on chronic back pain here with no traumatic injury. No loss of bowel or bladder, no neurological complaints. Patient's back pain is chronic in nature with history of back pain. Patient appears his pain could be related to a shoulder injury while moving some furniture last night although the pain is more in his back and shoulder. No neurological complaints able to ambulate no loss of bowel or bladder MD Complaint: back pain, back injury -: days(s) Similar Symptoms Previously: Yes Place: home Radiation: buttocks Severity: moderate Severity scale (1-10): 4 Quality: sharp Consistency: constant Improves With: none Context: while lifting, turning/twisting Associated Symptoms: denies other symptoms Treatments Prior to Arrival: other (0) - Related Data Home Medications Medication Instructions Recorded Confirmed Citalopram Hydrobromide [CeleXA] 40 mg PO HS 04/19/16 01/07/21 Albuterol Sulfate [Proair Hfa] 1 - 2 puff INHALATION RT-Q6H PRN 01/07/21 01/07/21 Cetirizine HCl [Zyrtec] 10 mg PO DAILY 01/07/21 01/07/21 Diclofenac Sodium Gel [Voltaren 1% 4 gm TOPICAL DAILY PRN 01/07/21 01/07/21 Gel] Fluticasone Propion/Salmeterol 2 puff INHALATION RT-BID 01/07/21 01/07/21 [Advair Hfa 115-21 Mcg Inhaler] HYDROcodone/APAP 5-325MG [[place] 1 tab PO Q12H PRN 01/07/21 01/07/21 5-325] Ibuprofen [Motrin Ib] 600 mg PO Q8H PRN 01/07/21 01/07/21 Meloxicam [Mobic] 15 mg PO DAILY 01/07/21 01/07/21 Naproxen [Naprosyn] 500 mg PO BID PRN 01/07/21 01/07/21 hydrOXYzine pamoate [Vistaril] 50 mg PO BID PRN 01/07/21 01/07/21 methocarbamoL [Robaxin] 500 mg PO BID 01/07/21 01/07/21 Previous Rx's Medication Instructions Recorded Apixaban [Eliquis] 5 mg PO BID #60 tab 01/08/21 Azithromycin [Zithromax Z Pack] 1 tab PO DIRECTED #6 tab 12/10/21 methylPREDNISolone Dose Pack 4 mg PO DIRECTED #21 packet 12/10/21 [Medrol Dose Pack] HYDROcodone/APAP 5-325MG [[place] 5] 1 each PO Q6HR PRN #12 tab 10/02/22 HYDROcodone/APAP 5-325MG [[place] 1 tab PO Q6HR PRN 3 Days #12 tab 11/04/22 5-325] Allergies Allergy/AdvReac Type Severity Reaction Status Date / Time codeine AdvReac Nausea Verified 07/30/23 14:20 [From Tylenol-Codeine #3] ibuprofen [From Motrin] AdvReac Nausea & Verified 07/30/23 14:20 Vomiting & Diarrhea Review of Systems ROS Statement: Those systems with pertinent positive or pertinent negative responses have been documented in the HPI. ROS Other: All systems not noted in ROS Statement are negative. Past Medical History Past Medical History: Asthma, Pulmonary Embolus (PE) Additional Past Medical History / Comment(s): compression fracture to back. dvt History of Any Multi-Drug Resistant Organisms: MRSA Date of last positivie culture/infection: 2005 MDRO Source:: generalized Past Surgical History: Orthopedic Surgery Additional Past Surgical History / Comment(s): vasectomy. Past Psychological History: No Psychological Hx Reported Smoking Status: Former smoker Past Alcohol Use History: Occasional Past Drug Use History: Marijuana General Exam Limitations: no limitations General appearance: alert, in no apparent distress, anxious Head exam: Present: atraumatic, normocephalic, normal inspection Eye exam: Present: normal appearance, PERRL, EOMI. Absent: scleral icterus, conjunctival injection, periorbital swelling ENT exam: Present: normal exam, mucous membranes moist Neck exam: Present: normal inspection. Absent: tenderness, meningismus, lymphadenopathy Respiratory exam: Present: normal lung sounds bilaterally. Absent: respiratory distress, wheezes, rales, rhonchi, stridor Cardiovascular Exam: Present: regular rate, normal rhythm, normal heart sounds. Absent: systolic murmur, diastolic murmur, rubs, gallop, clicks GI/Abdominal exam: Present: soft, normal bowel sounds. Absent: distended, tenderness, guarding, rebound, rigid Extremities exam: Present: normal inspection, full ROM, normal capillary refill. Absent: tenderness, pedal edema, joint swelling, calf tenderness Back exam: Present: normal inspection Neurological exam: Present: alert, oriented X3, CN II-XII intact Psychiatric exam: Present: normal affect, normal mood Skin exam: Present: warm, dry, intact, normal color. Absent: rash Course Vital Signs 07/30/23 07/30/23 14:18 18:01 Temperature 97.4 F L Pulse Rate 56 L 78 Respiratory 20 18 Rate Blood Pressure 133/86 148/77 O2 Sat by Pulse 97 96 Oximetry - Reevaluation(s) Reevaluation #1: Medical records reviewed Reevaluation #2: Patient symptoms improved Reevaluation #3: Patient informed of results and questions answered Reevaluation #4: Was pt. sent in by a medical professional or institution (, PA, ARC FURNACE OPERATOR, urgent care, hospital, or senior living...) When possible be specific @ -no Did you speak to anyone other than the patient for history (EMS, parent, family, police, friend...)? What history was obtained from this source @ -no Did you review nursing and triage notes (agree or disagree)? Why? @ -agree Are old charts reviewed (outside hosp., previous admission, EMS record, old EKG, old radiological studies, urgent care reports/EKG's, senior living records)? Report findings @ -yes Differential Diagnosis (chest pain, altered mental status, abdominal pain women, abdominal pain men, vaginal bleeding, weakness, fever, dyspnea, syncope, headache, dizziness, GI bleed, back pain, seizure, CVA, palpatations, mental health, musculoskeletal)? @ -prior EKG interpreted by me (3pts min.). @ -no X-rays interpreted by me (1pt min.). @ -No CT interpreted by me (1pt min.). @ -yes negative for acute disease U/S interpreted by me (1pt. min.). @ -no What testing was considered but not performed or refused? (CT, X-rays, U/S, labs)? Why? @ -none What meds were considered but not given or refused? Why? @ -none Did you discuss the management of the patient with other professionals (professionals i.e. , PA, AR[employer] FURNACE OPERATOR, lab, RT, psych nurse, social insurance adviser, flat sorter processor, teacher, financial administration officer, correctional casework specialist)? Give summary @ -no Was smoking cessation discussed for >3mins.? @ -no Was critical care preformed (if so, how long)? @ -no Were there social determinants of health that impacted care today? How? (Homelessness, low income, unemployed, alcoholism, drug addiction, transportation, low edu. Level, literacy, decrease access to med. care, custodial, rehab)? @ -none Was there de-escalation of care discussed even if they declined (Discuss DNR or withdrawal of care, Hospice)? DNR status @ -no What co-morbidities impacted this encounter? (DM, HTN, Smoking, COPD, CAD, Cancer, CVA, ARF, Chemo, Hep., AIDS, mental health diagnosis, sleep apnea, morbid obesity)? @ -none Was patient admitted / discharged? Hospital course, mention meds given and route, prescriptions, significant lab abnormalities, going to OR and other pertinent info. @ - 43-year-old ER for evaluation of back pain. Severe back pain though improved here in the ER with no neurological findings. Patient can be discharged home Discharge Undiagnosed new problem with uncertain prognosis? @ -no Drug Therapy requiring intensive monitoring for toxicity (Heparin, Nitro, Insulin, Cardizem)? @ -no Were any procedures done? @ -no Diagnosis/symptom? @ -Acute back pain Acute, or Chronic, or Acute on Chronic? @ -Acute Uncomplicated (without systemic symptoms) or Complicated (systemic symptoms)? @ -Complicated Side effects of treatment? @ -no Exacerbation, Progression, or Severe Exacerbation? @ -exacerbation Poses a threat to life or bodily function? How? (Chest pain, [place], [place], pneumonia, PE, COPD, DKA, ARF, appy, cholecystitis, CVA, Diverticulitis, Homicidal, Suicidal, threat to staff... and all critical care pts) @ -yes with call because of back pain Reevaluation #5: Differential Back Pain: Strain, zoster, cauda equina syndrome, epidural abscess, vertebral osteomyelitis, discitis, fracture, subluxation, disc herniation, DJD, spinal stenosis, dissection, AAA, pancreatitis, peptic ulcer disease, pyelonephritis, kidney stone, this is not meant to be an all-inclusive list. Medical Decision Making - Medical Decision Making 43-year-old ER for evaluation of back pain. Severe back pain though improved here in the ER with no neurological findings. Patient can be discharged home - Radiology Data Radiology results: report reviewed (CT lumbar spine is negative for acute disease), image reviewed Disposition Clinical Impression: Mechanical back pain, Lumbar radiculopathy Disposition: HOME SELF-CARE Condition: Fair Instructions (If sedation given, give patient instructions): Acute Low Back Pain (ED) Is patient prescribed a controlled substance at d/c from ED?: No Referrals: Greyson Jc DO [Primary Care Provider] - 1-2 days Time of Disposition: 17:40
[2023-07-30] MEDS: dexAMETHasone 2 MG TAB PO STA (16:19)
[2023-07-30] MEDS: diphenhydrAMINE 50 MG CAP PO STA (16:19)
[2023-07-30] MEDS: HYDROcodone/APAP 10-325MG 1 EACH TAB PO ONE (17:27)
--- NOTE | 2023-07-30 17:38 | CT ---
EXAMINATION TYPE: CT lumbar spine wo con CT DLP: 2578.4 mGycm, Automated exposure control for dose reduction was used. DATE OF EXAM: 07/30/2023 5:01 PM COMPARISON: 09/27/2017. CLINICAL INDICATION:Male, 43 years old with history of pain; [facility], States that he has a L1 hairline fr acture, Lower back pain x 1 day after heavy lifting at home. TECHNIQUE: Multiple axial images were obtained from the midportion of T11 through the sacroiliac liu nts. Soft tissue and bone windows in coronal and sagittal planes were obtained and reviewed. Contrast used: mL of , (None, if empty). Oral contrast used: (None, if empty). FINDINGS: Alignment: There are 5 lumbar type vertebral bodies within normal alignment. Bone: Stable deformity to the L1 vertebral body edema to at least 2018. Discs: T12-L1: No spinal canal or neural foraminal stenosis is identified. L1-L2: No spinal canal or neural foraminal stenosis is identified. L2-L3: No spinal canal or neural foraminal stenosis is identified. L3-L4: No spinal canal or neural foraminal stenosis is identified. L4-L5: No spinal canal or neural foraminal stenosis is identified. L5-S1: No spinal canal or neural foraminal stenosis is identified. Other: Nonobstructing right 3 mm calculus. IMPRESSION: 1. Stable L1 vertebral body compression deformity. No acute fractures are visualized. 2. No significant spinal canal or neural foraminal stenosis.
[2023-07-30] MEDS: traMADol 50 MG STARTER PACK 3 TAB BTL PO STA (17:58)
[2023-07-30] MEDS: HYDROmorphone 1 MG/ML 1 ML SYRINGE IM STA (18:07)
[2023-07-30 18:20] VITALS: BP 148/77; PULSE 78; RESP 18
== END 2023-07-30 18:07 | disposition home or self-care (01) ==
LOC: EC 14:14
DX: M54.16 Radiculopathy, lumbar region (principal); J45.909 Unspecified asthma, uncomplicated; F12.90 Cannabis use, unspecified, uncomplicated; Z79.1 Long term (current) use of non-steroidal anti-inflammatories (NSAID); Z79.51 Long term (current) use of inhaled steroids; Z79.899 Other long term (current) drug therapy; Z87.891 Personal history of nicotine dependence; Z88.5 Allergy status to narcotic agent; Z88.6 Allergy status to analgesic agent
CPT/HCPCS: 99284 ×2; 72131; J8540